=== PATIENT | male | born 1965 | race Caucasian/White ===

== ENCOUNTER 2017-11-27 14:25 | Emergency (ER) | payer OTHER ==
[~2017-11-27] VITALS: Ht 172.7 cm; Wt 99.8 kg
--- NOTE | 2017-11-27 15:10 | RADIOLOGY REPORT ---
EXAMINATION: XR CHEST CLINICAL INFORMATION: Fever, malaise, hypoxia, lethargy. COMPARISON: None TECHNIQUE: 2 views of the chest were obtained. FINDINGS: The lungs are clear. No pleural effusion. Cardiomediastinal silhouette and pulmonary vasculature are within normal limits. No acute osseous finding. IMPRESSION: No acute cardiopulmonary disease.
[2017-11-27 15:12] LABS: ABSOLUTE BASOPHIL COUNT 0.1 /CUMM (0.0-0.2); ABSOLUTE EOSINOPHIL COUNT 0.1 /CUMM (0.0-0.7); ABSOLUTE LYMPH COUNT 2.6 /CUMM (1.2-3.4); ABSOLUTE MONOCYTE COUNT 0.9 /CUMM (0.10-0.60); BASOPHIL % 0.6 % (0.0-2.0); EOSINOPHIL % 1.5 % (0-5); HEMATOCRIT 43.8 % (42-52); MEAN CORPUSCULAR HGB 29.7 PG (27.0-31.0); MEAN CORPUSCULAR HGB CONC 33.6 G/DL (33.0-37.0); MEAN CORPUSCULAR VOLUME 88.5 FL (80.0-94.0); MEAN PLATELET VOLUME 7.3 FL (7.4-10.4); PLATELET COUNT 268 /CUMM (130-400); RBC DISTRIBUTION WIDTH 12.9 % (11.5-14.5); RED BLOOD CELL CT 4.95 /CUMM (4.70-6.10); WHITE BLOOD CELL COUNT 8.7 /CUMM (4.8-10.8)
--- NOTE | 2017-11-27 15:22 | ED GENERAL ADULT ---
History of Present Illness General Chief Complaint: General Adult Stated Complaint: FATIQUE,SOB,WEAKNESS,LIGHT HEADED,SORE THROAT Source: patient Exam Limitations: no limitations Vital Signs & Intake/Output Vital Signs & Intake/Output Vital Signs Date Time Temp Pulse Resp B/P B/P Pulse O2 O2 Flow FiO2 Mean Ox Delivery Rate 11/27 1944 98.7 94 16 120/65 95 Room Air 11/27 1717 84 16 100 Room Air 11/27 1703 97.7 62 18 121/67 93 / 1500 Room Air 11/27 1434 96.9 83 20 88/60 94 Room Air Allergies Coded Allergies: Penicillins (UPSET STOMACH 11/27/17) Reconcile Medications Doxycycline Hyclate 100 MG TABLET 1 TAB PO BID lyme Ondansetron (Zofran Odt) 4 MG TAB.RAPDIS 1 TAB SL TID PRN nausea Triage Note: PT C/O SOB, FATIGUE, SORE THROAT, NAUSEA X 9 DAYS. SAW PMD ON TUESDAY, STREP AND LYME WERE NEG. ON TUESDAY HIS SYMPTOMS GOT WORSE Triage Nurses Notes Reviewed? yes Onset: Gradual Duration: day(s): Timing: recent history Severity: moderate HPI: 52-year-old male presents to emergency department complaining of intermittent fatigue, dyspnea, sore throat for the past 9 days. Patient's eyes primary care doctor on 11/21. At that time he had negative flu and strep test. A Lyme titer was sent and patient was informed that Lyme test was negative as well. Patient reports episodes of intermittent nausea and 3 episodes of vomiting on 11/23, he has had no further vomiting since then. Patient reports intermittent fevers and chills, myalgias. The patient denies chest pain, cough, sputum production, abdominal pain, diarrhea, rash, sick contact, urinary symptoms. Past History Travel History Traveled to [place] past 21 day No Medical History Any Pertinent Medical History? see below for history Cardiovascular: hyperlipidemia Surgical History Surgical History: non-contributory Psychosocial History What is your primary language Estonian Tobacco Use: Never used ETOH Use: occasional use Illicit Drug Use: denies illicit drug use Family History Hx Contributory? No Review of Systems Review of Systems Constitutional: Reports: see HPI. EENTM: Reports: see HPI. Respiratory: Reports: see HPI. Cardiovascular: Reports: no symptoms. GI: Reports: see HPI. Genitourinary: Reports: no symptoms. Musculoskeletal: Reports: see HPI. Skin: Reports: no symptoms. Neurological/Psychological: Reports: no symptoms. Hematologic/Endocrine: Reports: no symptoms. Immunologic/Allergic: Reports: no symptoms. All Other Systems: Reviewed and Negative Physical Exam Physical Exam General Appearance: well developed/nourished, no apparent distress, alert, awake Head: atraumatic, normal appearance Eyes: Bilateral: normal appearance. Ears, Nose, Throat: normal pharynx, hearing grossly normal Neck: normal inspection, supple, full range of motion, no lymphadenopathy Respiratory: normal breath sounds, no respiratory distress, lungs clear Cardiovascular: regular rate/rhythm Gastrointestinal: normal bowel sounds, soft, non-tender, no organomegaly Back: normal inspection, normal range of motion Extremities: normal inspection, normal range of motion Neurologic/Psych: awake, alert, oriented x 3 Skin: intact, normal color, warm/dry Core Measures ACS in differential dx? No CVA/TIA Diagnosis: No Sepsis Present: No Sepsis Focused Exam Completed? No Progress Differential Diagnoses I considered the following diagnoses in my evaluation of the patient: [Lyme disease, sepsis, pneumonia, pulmonary embolism, strep pharyngitis, endocarditis] Plan of Care: Orders Procedure Date/time Status BLOOD CULTURE 11/27 1802 Active Add-on Test (ER Only) 11/27 1556 Active EKG 11/27 1556 Active MONOSPOT TEST 11/27 1454 Complete URINALYSIS 11/27 1452 Complete THROAT CULTURE W/QUICK STREP 11/27 1444 Active LACTIC ACID 11/27 1444 Complete COMPREHENSIVE METABOLIC PANEL 11/27 1444 Complete CBC WITHOUT DIFFERENTIAL 11/27 1444 Complete Laboratory Tests 11/27/17 1928: Lyme Ab (Western Blot) Pending, Lyme IgG 18 kDa Band Pending, Lyme IgG 23 kDa Band Pending, Lyme IgG 28 kDa Band Pending, Lyme IgG 30 kDa Band Pending, Lyme IgG 39 kDa Band Pending, Lyme IgG 41 kDa Band Pending, Lyme IgG 45 kDa Band Pending, Lyme IgG 58 kDa Band Pending, Lyme IgG 66 kDa Band Pending, Lyme IgG 93 kDa Band Pending, Lyme IgM (Western Blot) Pending, Lyme IgM 23 kDa Band Pending, Lyme IgM 39 kDa Band Pending, Lyme IgM 41 kDa Band Pending 11/27/17 1744: Lactic Acid Cancelled 11/27/17 1724: Urine Color YEL, Urine Clarity CLEAR, Urine pH 6.0, Ur Specific Warren <= 1.005 , Urine Protein NEG, Urine Ketones NEG, Urine Nitrite NEG, Urine Bilirubin NEG, Urine Urobilinogen 0.2, Ur Leukocyte Esterase NEG, Ur Microscopic EXAM NOT REQUIRED, Urine Hemoglobin NEG, Urine Glucose NEG 11/27/17 1454: Infectious Red [place] Titer NEGATIVE 11/27/17 1452: Anion Gap 15, Estimated GFR > 60, BUN/Creatinine Ratio 12.7, Glucose 86, Lactic Acid 1.7, Calcium 9.3, Total Bilirubin 0.6, AST 36, ALT 43, Alkaline Phosphatase 84, Total Protein 7.8, Albumin 4.2, Globulin 3.6, Albumin/Globulin Ratio 1.2, CBC w Diff NO MAN DIFF REQ, RBC 4.95, MCV 88.5, MCH 29.7, MCHC 33.6, RDW 12.9, MPV 7.3 L, Gran % 57.0, Lymphocytes % 30.2, Monocytes % 10.7 H, Eosinophils % 1.5, Basophils % 0.6, Absolute Granulocytes 5.0, Absolute Lymphocytes 2.6, Absolute Monocytes 0.9 H, Absolute Eosinophils 0.1, Absolute Basophils 0.1 Microbiology 11/28 1827 BLOOD: Blood Culture - RECD 11/27 1801 BLOOD: Blood Culture - CAN Cancelled: Quantity not sufficient for both blood culture bottles. Chest x-ray shows no evidence of pneumonia. Labs are stable, no leukocytosis. These findings discussed with Dr. Han. We'll obtain chest CTA to further rule out pneumonia or pulmonary embolism. UA shows no evidence of UTI. Monospot test is negative. Chest CTA rules out pulmonary embolism, no pneumonia. The patient was seen and evaluated by Dr. Han. Symptoms may be consistent with Lyme disease. Will obtain western blot study. We'll initiate doxycycline at this time. Patient was given a referral to Dr. keller given his nonspecific infectious symptoms without definite findings in the emergency Department. Patient also to follow-up with his primary care doctor. Blood cultures were sent to the lab. The patient agrees with plan of care, vital signs are stable at time of discharge. Diagnostic Imaging: Viewed by Me: Radiology Read, CT Scan. Discussed w/RAD: Radiology Read, CT Scan. Radiology Impression: PATIENT: STORM ERICKSON PRESENT AGE: 52 PATIENT ACCOUNT NO: [id number] : 65 LOCATION: ER ORDERING PHYSICIAN: Cordelia FERNANDEZ SERVICE DATE: 11/27/17155 EXAM TYPE: CAT - CTA CHEST-PULMONARY EMBOLISM EXAMINATION: CT ANGIOGRAM OF THE CHEST WITH AND WITHOUT CONTRAST (CT PULMONARY ANGIOGRAM FOR PE) CLINICAL INFORMATION: Fever, dyspnea. COMPARISON: Chest radiography earlier today. TECHNIQUE: Prior to contrast administration, noncontrast localization images were obtained. Subsequently, multidetector volumetric imaging was performed from the thoracic inlet to below the diaphragms following the administration of 75 mL Optiray 320 intravenous contrast. No contrast reaction reported. Sagittal, coronal, and MIP oblique sagittal reformatted images were obtained on the CT workstation, uploaded to PACS, and reviewed. Total exam dose-length product 537 mGy-cm. FINDINGS: QUALITY OF STUDY/CONTRAST BOLUS: Satisfactory. PULMONARY ARTERIES: No central or segmental pulmonary emboli. THORACIC AORTA: No aneurysm or dissection. LUNG: No consolidation to suggest pneumonia. No suspicious pulmonary nodules. Mild dependent parenchymal changes. PLEURA: No pleural effusion or pneumothorax. MEDIASTINUM: Normal heart size. Scattered coronary artery calcification. No pericardial effusion. No hilar or mediastinal lymphadenopathy. Small hiatal hernia. CHEST WALL/AXILLA: No axillary or internal mammary lymphadenopathy. OSSEOUS STRUCTURES: No acute or suspicious osseous abnormality. UPPER ABDOMEN: No acute intra-abdominal abnormalities. IMPRESSION: 1. No pulmonary embolism. 2. No evidence of pneumonia or acute pulmonary pathology. 3. Scattered coronary artery calcification. VTE: Negative. DICTATED BY: Carlos Oh MD DATE/TIME DICTATED:11/27/171619 FOURCHETTE SEWER:JEN DATE/TIME TRANSCRIBED:11/27/171619 CONFIDENTIAL, DO NOT COPY WITHOUT APPROPRIATE AUTHORIZATION. <Electronically signed in Other Vendor System> SIGNED BY: Carlos Oh MD 11/27/17 4208 CXR Impression: PATIENT: STORM ERICKSON PRESENT AGE: 52 PATIENT ACCOUNT NO: [id number] : 65 LOCATION: [facility] ORDERING PHYSICIAN: Cordelia FERNANDEZ SERVICE DATE: 11/27/17-6883 EXAM TYPE: RAD - XRY-CHEST XRAY, TWO VIEWS EXAMINATION: XR CHEST CLINICAL INFORMATION: Fever, malaise, hypoxia, lethargy. COMPARISON: None TECHNIQUE: 2 views of the chest were obtained. FINDINGS: The lungs are clear. No pleural effusion. Cardiomediastinal silhouette and pulmonary vasculature are within normal limits. No acute osseous finding. IMPRESSION: No acute cardiopulmonary disease. DICTATED BY: Abiel Patterson MD DATE/TIME DICTATED:11/27/171505 FOURCHETTE SEWER: JEN DATE/TIME TRANSCRIBED:11/27/171505 CONFIDENTIAL, DO NOT COPY WITHOUT APPROPRIATE AUTHORIZATION. <Electronically signed in Other Vendor System> SIGNED BY: Abiel Patterson MD 11/27/17 1510 Initial ED EKG: sinus rhythm @63bpm, nonspecific ST changes Departure Departure Disposition: HOME OR SELF CARE Condition: Stable Clinical Impression Primary Impression: Dyspnea Qualifiers: Dyspnea type: dyspnea on exertion Qualified Code: R06.09 - Other forms of dyspnea Secondary Impressions: Fatigue Qualifiers: Fatigue type: unspecified Qualified Code: R53.83 - Other fatigue Nausea & vomiting Qualifiers: Vomiting type: unspecified Vomiting Intractability: non-intractable Qualified Code: R11.2 - Nausea with vomiting, unspecified Sore throat Referrals: Jerrica HUANG,Jhony Maher (PCP/Family) Dante HUANG,Harris Cai Additional Instructions: Take zofran as prescribed for nausea. Begin doxycycline. Follow-up with your primary care doctor, call the office Tuesday to make an appointment for this week. You were also given a referral to a infectious disease specialist. Return if you have worsening symptoms or other concerns. Please note that there might be incidental findings in your evaluation that are unrelated to the current emergency department visit. Please notify your primary care doctor about this emergency department visit in order to obtain and review all of the testing performed so that these incidental findings can be monitored as needed. If you had an x-ray performed, please understand that some fractures may not be seen on the initial set of x-rays. If your symptoms persist you might need a repeat set of x-rays to check for such a fracture. If you had a laceration evaluated, please understand that foreign bodies such as glass or wood may not be visible to the naked eye or on plain x-rays. If the wound becomes red, swollen, increasingly more painful or if there is any drainage from the wound, please have it reevaluated by a physician for the possibility of a retained foreign body. If you're unable to follow up as outlined in the discharge instructions please return to the emergency department. Thank you for choosing the [facility] Emergency Department for your care. It was a pleasure to serve you today. Departure Forms: Customer Survey General Discharge Information Prescriptions: Current Visit Scripts Ondansetron (Zofran Odt) 1 TAB SL TID PRN nausea #10 TAB Doxycycline Hyclate 1 TAB PO BID #28 TAB Critical Care Note Critical Care Note Critical Care Time: non-applicable
--- NOTE | 2017-11-27 16:55 | CT SCAN REPORT ---
EXAMINATION: CT ANGIOGRAM OF THE CHEST WITH AND WITHOUT CONTRAST (CT PULMONARY ANGIOGRAM FOR PE) CLINICAL INFORMATION: Fever, dyspnea. COMPARISON: Chest radiography earlier today. TECHNIQUE: Prior to contrast administration, noncontrast localization images were obtained. Subsequently, multidetector volumetric imaging was performed from the thoracic inlet to below the diaphragms following the administration of 75 mL Optiray 320 intravenous contrast. No contrast reaction reported. Sagittal, coronal, and MIP oblique sagittal reformatted images were obtained on the CT workstation, uploaded to PACS, and reviewed. Total exam dose-length product 537 mGy-cm. FINDINGS: QUALITY OF STUDY/CONTRAST BOLUS: Satisfactory. PULMONARY ARTERIES: No central or segmental pulmonary emboli. THORACIC AORTA: No aneurysm or dissection. LUNG: No consolidation to suggest pneumonia. No suspicious pulmonary nodules. Mild dependent parenchymal changes. PLEURA: No pleural effusion or pneumothorax. MEDIASTINUM: Normal heart size. Scattered coronary artery calcification. No pericardial effusion. No hilar or mediastinal lymphadenopathy. Small hiatal hernia. CHEST WALL/AXILLA: No axillary or internal mammary lymphadenopathy. OSSEOUS STRUCTURES: No acute or suspicious osseous abnormality. UPPER ABDOMEN: No acute intra-abdominal abnormalities. IMPRESSION: 1. No pulmonary embolism. 2. No evidence of pneumonia or acute pulmonary pathology. 3. Scattered coronary artery calcification. VTE: Negative.
[2017-11-27] MEDS ORDERED: DOXYCYCLINE HY100 M4 PO (18:01)
[2017-11-27] MEDS ORDERED: ZOFRAN ODT4 M1 SL (18:01)
[2017-11-27 19:44] VITALS: BP 120/65
== END 2017-11-27 19:45 ==
LOC: ERH 14:25
PROVIDERS: Physician Assistant
DX: R06.00 Dyspnea, unspecified (principal); R53.83 Other fatigue; R11.2 Nausea with vomiting, unspecified; J02.9 Acute pharyngitis, unspecified
CPT/HCPCS: 71046; 81003; 87040; 93005; 93010; 96361; 96374; J2405

== ENCOUNTER 2017-12-01 14:08 | Inpatient (IN) | payer OTHER ==
[~2017-12-01] VITALS: Ht 172.7 cm; Wt 99.8 kg
[~2017-12-01 14:08] MED LIST: DOXYCYCLINE HY100 M4 PO; ZOFRAN ODT4 M1 SL
[2017-12-01 14:55] LABS: ABSOLUTE BASOPHIL COUNT 0.1 /CUMM (0.0-0.2); ABSOLUTE EOSINOPHIL COUNT 0.1 /CUMM (0.0-0.7); ABSOLUTE GRANULOCYTE CT 5.9 /CUMM (1.4-6.5); ABSOLUTE LYMPH COUNT 2.6 /CUMM (1.2-3.4); ABSOLUTE MONOCYTE COUNT 0.9 /CUMM (0.10-0.60); BASOPHIL % 0.6 % (0.0-2.0); EOSINOPHIL % 1.3 % (0-5); GRANULOCYTE % 61.7 % (42.2-75.2); HEMATOCRIT 41.2 % (42-52); MEAN CORPUSCULAR HGB 30.1 PG (27.0-31.0); MEAN CORPUSCULAR HGB CONC 34.2 G/DL (33.0-37.0); MEAN CORPUSCULAR VOLUME 88.1 FL (80.0-94.0); MEAN PLATELET VOLUME 8.1 FL (7.4-10.4); RBC DISTRIBUTION WIDTH 13.3 % (11.5-14.5); RED BLOOD CELL CT 4.68 /CUMM (4.70-6.10)
--- NOTE | 2017-12-01 15:07 | ED GENERAL ADULT ---
History of Present Illness General Chief Complaint: General Adult Stated Complaint: LOW BLOOD PRESSURE, SEE HERE FOR SAME ON 11/27 Source: patient Exam Limitations: no limitations Vital Signs & Intake/Output Vital Signs & Intake/Output Vital Signs Date Time Temp Pulse Resp B/P B/P Pulse O2 O2 Flow FiO2 Mean Ox Delivery Rate 12/01 1804 125/67 12/01 1423 97.8 79 15 98/63 97 Room Air Room Air Allergies Coded Allergies: Penicillins (UPSET STOMACH 12/01/17) Reconcile Medications Doxycycline Hyclate 100 MG TABLET 1 TAB PO BID lyme Ondansetron (Zofran Odt) 4 MG TAB.RAPDIS 1 TAB SL TID PRN nausea Triage Note: PT SENT TO ED BY DR. MERCADO FOR LOW BLOOD PRESSURES OVER THE LAST WEEK. PT 98 SYSTOLIC IN TRIAGE. SENT BY DR. MERCADO FOR ADMISSION. PT HAS HX OF LYME DISEASE AND CHOLESTEROL. Triage Nurses Notes Reviewed? yes Onset: Gradual Duration: week(s): Timing: constant HPI: 52-year-old male with a history of Lyme disease and hyperlipidemia presenting with subjective fevers, generalized malaise and fatigue, nausea 2 weeks. Patient had 2 episodes of emesis in the last 2 weeks. Also endorses decreased appetite. Has been seen by his PMD Dr. Becerril with extensive outpatient workup including labs, CT chest, CT abdomen and pelvis, and has been unable to identify an etiology for his symptoms. Had Lyme testing that was equivocal, but was empirically started on antibiotic treatment. Has been taking his antibiotics without improvement. Sent in by Dr. Becerril for progressively worsening hypotension. Had 3 separate office visits during which his BP was 100 systolic with the first, 90s systolic with a second, and then 70s systolic with today's visit. Patient endorses intermittent lightheadedness, but no syncopal episodes. On arrival to the ED he is in the 90s systolic. Denies rashes, URI symptoms, cough, chest pain, shortness of breath, abdominal pain, diarrhea, dysuria. (Shameka Roca) Past History Travel History Traveled to [place] past 21 day No Medical History Any Pertinent Medical History? see below for history Neurological: LYME DISEASE Cardiovascular: hyperlipidemia Surgical History Surgical History: non-contributory Psychosocial History What is your primary language Iraqi Tobacco Use: Quit >30 days ago ETOH Use: occasional use Illicit Drug Use: denies illicit drug use Family History Hx Contributory? No (Shameka Roca) Review of Systems Review of Systems Constitutional: Reports: see HPI. EENTM: Reports: no symptoms. Respiratory: Reports: no symptoms. Cardiovascular: Reports: no symptoms. GI: Reports: see HPI. Genitourinary: Reports: no symptoms. Musculoskeletal: Reports: no symptoms. Skin: Reports: no symptoms. Neurological/Psychological: Reports: see HPI. Hematologic/Endocrine: Reports: no symptoms. Immunologic/Allergic: Reports: no symptoms. (Shameka Roca) Physical Exam Physical Exam General Appearance: well developed/nourished, no apparent distress, alert, awake , comfortable Head: atraumatic, normal appearance Eyes: Bilateral: normal appearance, PERRL, EOMI. Ears, Nose, Throat: normal ENT inspection Neck: normal inspection, supple Respiratory: normal breath sounds, lungs clear Cardiovascular: regular rate/rhythm Gastrointestinal: soft, non-tender Back: normal inspection Extremities: normal inspection Neurologic/Psych: no motor/sensory deficits, awake, alert, oriented x 3, normal gait, normal mood/affect, kiln loader II-XII nml as tested, cerebellar function intact Skin: intact, normal color, warm/dry, rashes Core Measures ACS in differential dx? No CVA/TIA Diagnosis: No Sepsis Present: No Sepsis Focused Exam Completed? No (Shameka Roca) Progress Differential Diagnoses I considered the following diagnoses in my evaluation of the patient: [Viral syndrome versus Lyme versus thyroid imbalance versus metabolic derangement versus adrenal insufficiency] Plan of Care: Orders Procedure Date/time Status Heart Healthy Diet 12/02 B Active ED Holding Orders 12/01 1847 Active Admit to inpatient 12/01 1847 Active Vital Signs 12/01 1847 Active Code Status 12/01 1847 Active Patient Data 12/01 1845 Active TSH REFLEX 12/01 1755 Active TROPONIN LEVEL 12/01 1755 Active FREE T4 12/01 1755 Active Add-on Test (ER Only) 12/01 1715 Active MISTAKE 12/01 1621 Active URINALYSIS 12/01 1543 Complete Add-on Test (ER Only) 12/01 1531 Active PHOSPHORUS 12/01 1440 Complete MAGNESIUM 12/01 1440 Complete LIPASE 12/01 1440 Complete Add-on Test (ER Only) 12/01 1435 Active CORTISOL PM 12/01 1426 Complete COMPREHENSIVE METABOLIC PANEL 12/01 1426 Complete CBC WITHOUT DIFFERENTIAL 12/01 142 Complete EKG 12/01 142 Active Laboratory Tests 12/01/17 1816: Urine Color STRAW, Urine Clarity CLEAR, Urine pH 6.0, Ur Specific Baker <= 1.005, Urine Protein NEG, Urine Ketones NEG, Urine Nitrite NEG, Urine Bilirubin NEG, Urine Urobilinogen 0.2, Ur Leukocyte Esterase NEG, Ur Microscopic EXAM NOT REQUIRED, Urine Hemoglobin NEG, Urine Glucose NEG 12/01/17 1440: Anion Gap 12, Estimated GFR 58 L, BUN/Creatinine Ratio 11.5, Glucose 91, Calcium 9.5, Phosphorus 4.4, Magnesium 2.1, Total Bilirubin 0.6, AST 29, ALT 36, Alkaline Phosphatase 78, Total Protein 7.6, Albumin 4.1, Globulin 3.5, Albumin/ Globulin Ratio 1.2, Lipase 122, Cortisol PM Sample 11.2, CBC w Diff NO MAN DIFF REQ, RBC 4.68 L, MCV 88.1, MCH 30.1, MCHC 34.2, RDW 13.3, MPV 8.1, Gran % 61.7, Lymphocytes % 27.1, Monocytes % 9.3, Eosinophils % 1.3, Basophils % 0.6, Absolute Granulocytes 5.9, Absolute Lymphocytes 2.6, Absolute Monocytes 0.9 H, Absolute Eosinophils 0.1, Absolute Basophils 0.1 Orthostatics showed drop in systolic BP from 120s to low 80s when going from laying to standing. Patient was profoundly symptomatic with standing. Will initiate IV fluids and admit for further evaluation of his orthostasis of unclear etiology. Discussed with the ED attending, hospitalist, and MOD. Initial ED EKG: NSR, no ST T wave changes, inferior q waves (Shameka Roca) Departure Departure Disposition: STILL A PATIENT Condition: Stable Clinical Impression Primary Impression: Orthostatic hypotension Referrals: Jerrica HUANG,Jhony Maher (PCP/Family) Departure Forms: Customer Survey General Discharge Information Admission Note Spoke With: Clive Jones MD Documentation of Exam: Documentation of any treatments & extenuating circumstances including Concerns Regarding Discharge (functional status, medication knowledge or non-compliance, living conditions, etc.) that warrant an admission rather than observation: [IV fluids, hemodynamic monitoring, further w/u for unclear etiology of orthostatic hypotension, am cortisol level] (Shameka Roca) PA/SECURITY SUPERVISOR Co-Sign Statement Statement: ED Attending supervision documentation- [X] I saw and evaluated the patient. I have also reviewed all the pertinent lab results and diagnostic results. I agree with the findings and the plan of care as documented in the PA's/SECURITY SUPERVISOR's documentation. [X] I have reviewed the ED Record and agree with the PA's/SECURITY SUPERVISOR's documentation. [] Additions or exceptions (if any) to the PAs/SECURITY SUPERVISOR's note and plan are summarized below: [Patient to be admitted for symptomatic orthostatic hypotension. Patient's symptoms are worsening. Patient was hypotensive in his primary care physician's office. Patient to be admitted for IV fluids cardiology consultation.] (Pelon HUANG,Raimundo Cleaning) Critical Care Note Critical Care Note Critical Care Time: non-applicable (Shameka Roca)
[2017-12-01 15:12] LABS: WHITE BLOOD CELL COUNT 9.6 /CUMM (4.8-10.8)
[2017-12-01 15:14] LABS: PLATELET COUNT 246 /CUMM (130-400)
--- NOTE | 2017-12-01 20:22 | History & Physical ---
Silva Ashley MD 12/01/172020: General Information and HPI MD Statement: I have seen and personally examined STORM ERICKSON and documented this H&P. The patient is a 52 year old M who presented with a patient stated chief complaint of nausea, vomiting, dizziness, recent URI for 2 weeks Source of Information: patient Exam Limitations: no limitations History of Present Illness: This is a 52-year-old male with a past medical history significant for hyperlipidemia, Raynaud's disease, strong family history of colon cancer that comes to see us for complaint of fatigue, malaise, nausea/vomiting, orthostatic hypotension with recent upper respiratory illness for 2 weeks. The patient states that about 2 weeks ago he developed a fever of 103 and extreme fatigue. He also admits to a sore throat around the same time, cough, myalgias and notes that he thought he had strep throat so visited his primary care doctor, Dr. Becerril. At that time he had a rapid strep test and also a flu test which were both negative. At that time he was found to have systolic blood pressures in the 100s. The patient treated this sickness with rest and hydration but his symptoms other than the sore throat and cough did not get better. 6 days after his first visit to his PCP, he visited urgent care and was ultimately sent to the [facility] for workup. His systolic blood pressure at that time was found to be in the 90s. He had a test for Lyme disease which was positive on 2 bands so was started on doxycycline, has received 8 doses total to date. The patient had other workup including CT abdomen and pelvis, CT chest, chest x-ray child did not show any cause of his continued symptoms. The patient continued to feel sick over this week. He had an echocardiogram planned for today but when he went to his PCPs office, he was found to have a systolic blood pressure in the 80s and was ultimately sent to [facility]. The patient also noted that he has had decreased appetite recently with low food and fluid intake. He has continued to be lightheaded especially on standing or any movement but denies any vertigo. He denies any loss of consciousness. The patient has taken Zofran throughout the week and notes that it did help with his nausea and vomiting. The patient denies any history of rash, chest pain, shortness of breath, urinary symptoms, diarrhea but admits to some recent constipation with abdominal discomfort. Of note the patient does have a strong family history of colon cancer with most relatives on his father's side having had colon cancer. The patient states that he cannot confirm or deny any blood in the stools as he is color blind. He last had a colonoscopy 3-4 years ago and notes that no polyps were found at the time. The patient denies any headache, tinnitus, visual changes. He denies any focal neuro deficit. Of note, the patient has a history of Raynaud's phenomenon and notes that usually it isn't sided by cold, but recently flareups have been occurring more frequently. The patient denies any recent sick contacts but does admit to a recent trip to [place] with a long road trip helping his father drive [place]. Allergies/Medications Allergies: Coded Allergies: Penicillins (UPSET STOMACH 12/01/17) Home Med list Doxycycline Hyclate 100 MG TABLET 1 TAB PO BID lyme Ondansetron (Zofran Odt) 4 MG TAB.RAPDIS 1 TAB SL TID PRN nausea Past History Travel History Traveled to [place] past 21 day No Medical History Neurological: LYME DISEASE Cardiovascular: hyperlipidemia, Raynaud's Surgical History Surgical History: non-contributory Past Family/Social History Family History Relations & Conditions if any FATHER FH: colon cancer MOTHER Psychosocial History ETOH Use: occasional use Illicit Drug Use: denies illicit drug use Review of Systems Review of Systems Constitutional: Reports: fever, malaise, weakness. EENTM: Reports: no symptoms. Cardiovascular: Reports: no symptoms. Respiratory: Reports: cough. GI: Reports: abdominal pain, constipation, nausea, vomiting. Genitourinary: Reports: no symptoms. Musculoskeletal: Reports: no symptoms. Skin: Reports: no symptoms. Neurological/Psychological: Reports: no symptoms. Hematologic/Endocrine: Reports: no symptoms. Immunologic/Allergic: Reports: no symptoms. Exam & Diagnostic Data Last 24 Hrs of Vital Signs/I&O Vital Signs Date Time Temp Pulse Resp B/P B/P Pulse O2 O2 Flow FiO2 Mean Ox Delivery Rate 12/02 2207 98.7 68 20 114/64 98 Room Air 12/02 2007 98.3 77 16 104/64 98 Room Air 12/01 1900 Room Air Room Air 12/01 1804 125/67 12/01 1423 97.8 79 15 98/63 97 Room Air Room Air Intake & Output 12/02 0800 12/02 0000 12/01 1600 Intake Total 1100 Output Total Balance 1100 Intake, IV 1000 Intake, Oral 100 Patient 220 lb 220 lb Weight Weight Reported by Patient Reported by Patient Measurement Method Physical Exam General Appearance Alert, Oriented X3, Cooperative, No Acute Distress Skin No Rashes, No Breakdown, No Significant Lesion Skin Temp/Moisture Exam: Warm/Dry Sepsis Skin Exam (color): Normal for Ethnicity HEENT Atraumatic, EOMI, Mucous Membr. moist/pink Neck Supple, No JVD Cardiovascular Regular Rate, Normal S1, Normal S2, No Murmurs Lungs Clear to Auscultation, Normal Air Movement Abdomen Normal Bowel Sounds, Soft, No Tenderness Neurological Normal Gait, Normal Speech, Strength at 5/5 X4 Ext, Normal Tone, Sensation Intact, Cranial Nerves 3-12 NL, Reflexes 2+ Extremities No Clubbing, No Cyanosis, No Edema, Normal Pulses Vascular Normal Pulses, Pulses Symmetrical Last 24 Hrs of Labs/Paddy: Laboratory Tests 12/01/17 1929: Troponin I < 0.01, Free T4 1.32, Total T3 1.24, TSH &T3 &Free T4 Intrp 1.190 12/01/171815: Urine Color STRAW, Urine Clarity CLEAR, Urine pH 6.0, Ur Specific Delmar <= 1.005, Urine Protein NEG, Urine Ketones NEG, Urine Nitrite NEG, Urine Bilirubin NEG, Urine Urobilinogen 0.2, Ur Leukocyte Esterase NEG, Ur Microscopic EXAM NOT REQUIRED, Urine Hemoglobin NEG, Urine Glucose NEG 12/01/17 181: Ur Random Creatinine 91.3, Ur Random Sodium 14 L, Ur Random Potassium 14.5, Fraction Sodium Excret 0.1 12/01/17 1440: Anion Gap 12, Estimated GFR 58 L, BUN/Creatinine Ratio 11.5, Glucose 91, Calcium 9.5, Phosphorus 4.4, Magnesium 2.1, Total Bilirubin 0.6, AST 29, ALT 36, Alkaline Phosphatase 78, Total Protein 7.6, Albumin 4.1, Globulin 3.5, Albumin/ Globulin Ratio 1.2, Lipase 122, Cortisol PM Sample 11.2, CBC w Diff NO MAN DIFF REQ, RBC 4.68 L, MCV 88.1, MCH 30.1, MCHC 34.2, RDW 13.3, MPV 8.1, Gran % 61.7, Lymphocytes % 27.1, Monocytes % 9.3, Eosinophils % 1.3, Basophils % 0.6, Absolute Granulocytes 5.9, Absolute Lymphocytes 2.6, Absolute Monocytes 0.9 H, Absolute Eosinophils 0.1, Absolute Basophils 0.1 Assessment/Plan Assessment: This is a 52-year-old male with a past medical history significant for hyperlipidemia, Raynaud's disease, strong family history of colon cancer that comes to see us for complaint of fatigue, malaise, nausea/vomiting, orthostatic hypotension with recent upper respiratory illness for 2 weeks. The patient was found to have hypotension by his PCP. Extensive workup did not point to a cause for the patient's symptoms. The patient is currently being treated for Lyme disease although he only had 2 positive Lyme immunoglobulins. The patient has a positive family history of colon cancer and on CT abdomen was found to have a questionable lesion, thickening of the splenic flexure. In the ED, the patient was found to have positive orthostatics. His vital signs otherwise were stable. WBC was found to be 9.6, sodium 137, potassium 4.4 , thyroid tests normal, p.m. cortisol was also found to be normal. Creatinine was found to be elevated to 1.3 from his baseline of 1.0 in June but she doesn't 13 and 1.1 in June 2017. A chest x-ray was clear. Chest CT showed no pulmonary embolism, no pneumonia and scattered coronary calcifications. CT abdomen and pelvis was described above. EKG showed a rate of 57 with evidence for LVH and normal QTC. Patient will be admitted to the Gen. medical floors for evaluation and treatment of the following: #Orthostatic hypotension likely secondary to adrenal insufficiency. This could have been exacerbated by recent stress i.e. viral upper respiratory illness. The patient's p.m. cortisol while unreliable, indicates that he is potentially not having a robust enough stress response. The patient has no indication at the moment for SIRS or sepsis. Hypotension could also be caused by heart rate/ rhythm issues but this patient was found to have no issues with either. The patient does have evidence of mild dehydration with a creatinine of 1.3. #Evidence of potential lesion on CT abdomen and pelvis in the setting of family history of colon cancer Plan -Follow up with a.m. cortisol level -If abnormal follow-up with endocrinology consult -Urine tox screen -CRP/ESR for potential vasculitis, patient already does have Raynaud's phenomenon -Continue patient's doxycycline to complete a 14 day course for his potential although unlikely Lyme disease. -Continue IV hydration with 1 more liter. -Guaiac stools for concern of colonic mass in setting of family history of colon cancer. Patient is full code Regular diet DVT prophylaxis with Alps and chemical prophylaxis As Ranked By This Provider Problem List: 1. Orthostatic hypotension 2. Fatigue 3. Nausea & vomiting 4. Dyspnea 5. Sore throat Core Measures/Misc (03/06) Acute Coronary Syndrome ACS Diagnosis: No Congestive Heart Failure Congestive Heart Failure Diagnosis No Cerebrovascular Accident CVA/TIA Diagnosis: No VTE (View Protocol) VTE Risk Factors Acute Medical Illness No Mechanical VTE Prophylaxis d/t N/A MechProphylax Ordered No VTE Pharm Prophylaxis d/t NA PharmProphylax ordered Sepsis (View protocol) Sepsis Present: No If YES complete Sepsis Event Note If YES complete Sepsis Event Note Anabella HUANG,Ismail 12/02/17 0400: Core Measures/Misc (03/06) Sepsis (View protocol) If YES complete Sepsis Event Note If YES complete Sepsis Event Note Resident Review Statement Resident Statement: examined this patient, discussed with manager of international, agreed with manager of international Other Findings: 52/M with PMHx significant for HLD, Raynaud's phenomena, & strong family hx of colon cancer, who presented for dizziness, nausea, vomiting, and hypotension. The patient had cough, fever and muscle aches from 2 weeks ago, his cough improved however he continued to complain of intermittent dizziness and hypotension. His been seen by health PCP with extensive outpatient workup includes Taylor CTs and multiple low workup, however wasn't able to identify that showed view of his symptoms. The patient was started on doxycycline for inconclusive Lyme test results, he initially felt better however earlier today his symptoms are worse for which she decided to visit the ED. He reports poor oral intake secondary to persistent nausea and dizziness when sitting or standing. His symptom completely resolved upon laying flat. He denies any other current active complaints. Vitals: Temp 97.8, HR 79, BP 98/63 (improved to 125/67 after IV fluid), O2 97. Labs: Cr 1.3, GFR 58. H&H, LVT, TFT, Na, Ronnie, Mg, Ca, are all WNL. Imaging: CXR at revealed no acute process. CTA on revealed no PE, no active pathology. Abominal CT on Dec 01 showed 2 cm segmental region of apparent mucosal wall thickening of the splenic flexure, possibly colonic contraction however mass cannot be excluded and follow-up is recommended. Assessment: Patient has significant positive orthostatic hypotension. He has extensive workup as an outpatient that did not reveal etiology. She responded well to IV fluids. He has RACHNA and hypotension on admission, this possibly secondary to poor oral intake because of persistent nausea. Random cortisol was found inappropriately normal at 11.2 (normal 1.7-14), cortisol should be elevated we' ll start hypotension, however the random cortisol is not sensitive enough, we will order a morning cortisol level and if low or normal we will ask for endocrinology consult. Even with hypotension, RACHNA, and dehydration his potassium is normal at 4.4 which may indicate dysfunction of tbghxuyck-urzrirvqawc-vsudojiqwhx pathway which supposed to compensate. Other possible explanation would be pure Autonomic Failure such as scott-jake syndrome which present as orthostatic hypotension, impotence (he has sildenafil on reconcile meds), urinary and GI symptoms as well. Also Autonomic failure is possible, a disorder of noradrenergic neurotransmission in which postganglionic sympathetic neurons do not release norepinephrine appropriately. Vasculitis as also possible. Problem list: * Orthostatic hypotension associated with dizziness, nausea, vomiting * Hyperlipidemia * Raynaud's phenomena * Stron fx of colon cancer * Color blindness * Lyme undetermined test results Plan: * Admitted to general medicine floor * IV hydration with normal saline * Check morning cortisol, if low or normal call endocrinology consult * U tox * Continue doxycycline for possible Lyme * ESR and CRP for autoimmune disease. * Guaiac stool, given possible pathology on CT abdomine and Color blindness (GI bleed cant be ruled out) * Consider OSIEL -Regular diet -DVT PPx with SC heprin and ALPS -FC Clive Jones 12/02/17 0645: Core Measures/Misc (03/06) Sepsis (View protocol) If YES complete Sepsis Event Note If YES complete Sepsis Event Note Attending MD Review Statement Attending Statement Attending MD Statement: examined this patient, discuss w/resident/PA/[employer], agreed w/resident/PA/[employer], reviewed EMR data (avail), reviewed images, amended to note Attending Assessment/Plan: CC: Hypotension PMH: HLD, Raynaud's phenomena 52-year-old male with no significant past medical history presented in ER for low blood pressure from primary care office. Since last 2 weeks patient had been noticing malaise, fatigue, cough, low-grade fever and sore throat which eventually resolved but nausea and vomiting persisted. He vomited 2 times in 7 days. He is more concerned about fatigue and lethargy. He is feeling dizzy whenever he was standing up. He followed up with his primary care physician and underwent extensive workup including abdominal CT scan chest CT scan. On today's follow-up his blood pressure was even lower dose he was sent to ER. Meanwhile patient also had an ER visit where Lyme titers were checked and he was started on doxycycline. He denied similar complaints in the past, denies chest pain palpitations. He underwent 2-D echocardiogram today. Even though with His prescription for Viagra he denied taking any pills in last 2 weeks. No regular medications are buca-cja-urvbsxy supplements. Patient has mild discomfort in upper abdomen feels like nausea but denies any heartburn. Vitals: Temperature 97.8, pulse 79, RR 15, blood pressure 98/63, saturating 97% on room air On exam: A O 3, cooperative, no acute distress, neck supple, JVD normal, no lymphadenopathy, mucosa moist, no focal neurological deficit, no dependent edema , no obvious skin rashes or inflammation CVS: S1-S2, RRR. RS: Clear to auscultate bilaterally. Abdomen: Soft, NT, ND, bowel sounds present. CTA chest done on November 27: 1. No pulmonary embolism. 2. No evidence of pneumonia or acute pulmonary pathology. 3. Scattered coronary artery calcification. CT chest abdomen with oral and IV contrast: 1. No CT evidence for acute abnormality within the abdomen or pelvis. 2. Mild to moderate stool burden throughout the colon, particularly the proximal colon. 3. Approximately 2 cm segmental region of apparent mucosal wall thickening of the splenic flexure. This is a nonspecific finding and was less apparent on chest CT from 3 days prior. I suspect this represents a region of colonic contraction, however, an underlying colonic lesion cannot be entirely excluded. Attention to this region on follow-up is recommended with either repeat imaging or colonoscopy. Assessment and plan 52-year-old male with no significant past medical history was sent to ER from primary care office for persistent low blood pressure. Patient has been having symptoms since last 2 weeks with generalized fatigue, malaise, low-grade fever, cough and sore throat nausea and intermittent vomiting. All the symptoms resolved except nausea, discomfort in epigastric region and vomiting. Patient feels dizzy when he stands up. He was orthostatic positive in ER otherwise complete examination and labs unremarkable. His cortisol level was 11.2 Needs further workup for this orthostatic hypotension, will hydrate overnight, check a.m. cortisol if low than endocrine consult or else may need autonomic neuropathy workup. Patient was seen recently in ER and was started on lyme Treatment. Will continue the same. On CT scan abdomen done on 30 of November there is incidental finding of small lesion at splenic flexure of the colon. Patient gets colonoscopy every 5 years given his significant family history of colon cancer. I suggested him to get colonoscopy immediately after discharge. + Orthostatic hypotension of unclear etiology - Admit to general medicine - Continue gentle hydration overnight 150 mL per hour for 1 more liter - Reevaluate orthostatic vitals in a.m. - 8 AM cortisol - Check U tox - Continue doxycycline - Obtain recent 2-D echocardiogram report from primary care office (done yesterday).
[2017-12-01 22:08] VITALS: BP 114/64
--- NOTE | 2017-12-02 06:46 | Admission Certification ---
Admission Certification Certification Statement - As attending physician, I certify that at the time of - admission, based on clinical presentation, severity of - symptoms, need for further diagnostic testing and - therapeutic interventions, and risk of adverse outcomes - without in-hospital treatment, in my clinical assessment, - this patient requires an acute hospital stay for a minimum - of two nights or longer. I have also considered psychsocial - factors such as support system, advanced age, financial - issues, cognitive issues, and failed out-patient treatments, - past re-admission history, safety of patient, and lack of - compliance as applicable. Specific rationale supporting this admission is: orthostatic hypotension
[2017-12-02 06:49] VITALS: BP 110/68
--- NOTE | 2017-12-02 07:44 | PN- Housestaff ---
Norma HUANG,Ehsan 12/02/17 0743: Subjective Follow-up For: Orthostatic hypotension Fatigue Low cortisol level Subjective: Patient seen and examined today Reports signifncant fatigue, dizziness with movement, SOB on exertion Patient states symptoms have slightly improved with fluids Reports poor appetite, occasional nausea and abdominal discomfort Denies chest pain, palpitation, fever/chills. No acute events overnight. Review of Systems Constitutional: Reports: see HPI. Objective Last 24 Hrs of Vital Signs/I&O Vital Signs Date Time Temp Pulse Resp B/P B/P Pulse O2 O2 Flow FiO2 Mean Ox Delivery Rate 12/02 1336 98.3 56 17 120/80 95 Room Air 12/02 0649 98.6 54 20 110/68 98 Room Air 12/018 98.7 68 20 114/64 98 Room Air 12/02 2007 98.3 77 16 104/64 98 Room Air Intake & Output 12/02 1600 12/02 0800 12/02 0000 Intake Total 450 1100 Output Total 600 500 Balance -600 -50 1100 Intake, IV 350 1000 Intake, Oral 100 100 Output, Urine 600 500 Patient 220 lb Weight Weight Reported by Patient Measurement Method Physical Exam General Appearance: Alert, Cooperative, No Acute Distress Skin Temp/Moisture Exam: Warm/Dry Sepsis Skin Exam (color): Normal for Ethnicity HEENT: Atraumatic, PERRLA, EOMI, Mucous Membr. moist/pink Cardiovascular: Regular Rate, Normal S1, Normal S2 Lungs: Clear to Auscultation, Normal Air Movement Abdomen: Normal Bowel Sounds, Soft, No Tenderness Neurological: Normal Speech, Strength at 5/5 X4 Ext, Normal Tone, Sensation Intact, Cranial Nerves 3-12 NL Extremities: No Clubbing, No Cyanosis, No Edema, Normal Pulses, No Tenderness/ Swelling Vascular: Normal Pulses, Pulses Symmetrical Current Medications: Current Medications Sig/Brooks Start time Last Medication Dose Route Stop Time Status Admin Acetaminophen 500 MG Q6P PRN 12/02 194 AC PO Cosyntropin 0.25 MG ONE ONE 12/02 1100 DC 12/02 IV 12/02 1101 1147 Doxycycline Hyclate 100 MG BID 12/02 0900 CAN PO Doxycycline Hyclate 100 MG ONCE ONE 12/01 2014 DC 12/01 PO 12/01 Doxycycline Hyclate 0 .STK-MED ONE 12/01 2001 DC PO Heparin Sodium 5,000 UNIT Q8 12/01 2199 AC 12/02 (Porcine) SC 1359 Lactated Ringer's 1,000 ML Q6H 12/02 0315 DC 12/02 IV 12/02 0914 0456 Ondansetron HCl 4 MG Q6P PRN 12/01 2245 AC 12/02 IV 1916 Patient Medication 1 ED ONE ONE 12/02 1400 DC Teaching ED 12/02 1401 Sodium Chloride 1,000 ML BOLUS ONE 12/02 1945 AC IV 12/03 0544 Last 24 Hrs of Lab/Paddy Results Last 24 Hrs of Labs/Mics: Laboratory Tests 12/02/17 1420: Urine Opiates Screen < 100, Methadone Screen < 40, Barbiturate Screen < 60, Ur Phencyclidine Scrn < 6.00, Amphetamines Screen < 100, U Benzodiazepines Scrn < 85, Urine Cocaine Screen < 50, Urine Cannabis Screen < 5.00 12/02/17 1240: Cortisol PM Sample 20.6 H 12/02/17 0625: Anion Gap 9, Estimated GFR > 60, BUN/Creatinine Ratio 12.5, Iron 76, TIBC 304, Ferritin 115.0, C-React Prot High Sens 1.6, Prolactin 10.7, Total Testosterone 328.0, Cortisol AM Sample 9.8, CBC w Diff NO MAN DIFF REQ, RBC 4.10 L, MCV 88.9 , MCH 30.4, MCHC 34.2, RDW 13.4, MPV 8.9, Gran % 59.7, Lymphocytes % 30.9, Monocytes % 7.5, Eosinophils % 1.6, Basophils % 0.3, Absolute Granulocytes 5.0, Absolute Lymphocytes 2.6, Absolute Monocytes 0.6, Absolute Eosinophils 0.1, Absolute Basophils 0, ESR Westergren 42 H Assessment/Plan Assessment: Patient is a 52-year-old male with past medical history of hyperlipidemia, Raynaud's syndrome, strong family history of colon cancer presenting with fatigue, malaise, nausea/vomiting, orthostatic hypotension, recently seen in the emergency department on November 27 and treated for Lyme disease sent home with doxycycline. Today patient continues to remain orthostatic, endorses dizziness, fatigue and vague abdominal discomfort. CT abdomen and pelvis done showing no acute findings. However does show mucosal wall thickening of the splenic flexure, patient has significant family history of colon cancer. Patient had a.m. cortisol level done which was borderline at 9.8. Cosyntropin test was done today which was normal at 20. Endocrinology was consulted and additional labs including prolactin, total testosterone, FSH and LH were sent. Patient's Lyme titers were reviewed and patient does not meet criteria for Lyme disease. Doxycycline was discontinued today. Patient this evening continues to remain dizzy. 1 bag of IV fluids was restarted. Patient's H/H dropped this today. Iron studies wnl. 1. Orthostatic hypotension 2. Anemia 3. Fatigue 4. Chronic conditions: HLD, Raynauds Plan: Admitted to [facility] Endocrinology consulted Follow up testosterone, prolactin, LH, FSH Orthostatic vital signs IV fluids- NS @ 100cc/hr x 1L Repeat H/H in AM Guiac all stool DVT PPx: Heparin SC Diet: Regular Code: Full code Problem List: 1. Orthostatic hypotension 2. Fatigue 3. Nausea & vomiting Pain Ratin Pain Location: n/a Pain Goal: Remain pain free Pain Plan: tyelnol PRN Tomorrow's Labs & Rationales: cbc Ashwin Taylor MD 12/02/17 1105: Attending MD Review Statement Attending Statement Attending MD Statement: examined this patient, discuss w/resident/PA/SAILOR, agreed w/resident/PA/SAILOR, reviewed EMR data (avail), discussed with nursing, discussed with case mgmt, amended to note Attending Assessment/Plan: Seen and examined. Continues to complain of dizziness particularly with position changes. Denies nausea vomiting at present. Denies abdominal pain. He is afebrile. He is hemodynamically stable. On examination he has no nystagmus for other neurologic deficits. Problems: 1. Orthostatic hypotension 2. Abnormal cortisol level; probably due to adrenal insufficiency. 3. Abnormal Lyme titer; not diagnostic for Lyme disease. 4. Raynaud's disease 5. 2 cm segmental region of wall thickening at the splenic flexure. Colonic lesion cannot be excluded. Plan: -A.m. cortisol level is below the range of 10-20. Recommend cosyntropin stimulation test and evaluation by the endocrinology service. -Fall precautions at all times. -Lying type that is currently in a diagnosis of Lyme disease. Discontinue doxycycline. -Hemoglobin level noted to trend downwards today. Check stool guaiac. Repeat H &H in the a.m. -Follow-up recent echocardiogram done in the outpatient. -Further disposition based on results of cosyntropin testing.
[2017-12-02 07:58] LABS: ABSOLUTE BASOPHIL COUNT 0 /CUMM (0.0-0.2); ABSOLUTE EOSINOPHIL COUNT 0.1 /CUMM (0.0-0.7); EOSINOPHIL % 1.6 % (0-5); MEAN PLATELET VOLUME 8.9 FL (7.4-10.4); WHITE BLOOD CELL COUNT 8.4 /CUMM (4.8-10.8)
[2017-12-02 08:12] LABS: ABSOLUTE LYMPH COUNT 2.6 /CUMM (1.2-3.4); ABSOLUTE MONOCYTE COUNT 0.6 /CUMM (0.10-0.60); BASOPHIL % 0.3 % (0.0-2.0); GRANULOCYTE % 59.7 % (42.2-75.2); HEMATOCRIT 36.4 % (42-52); MEAN CORPUSCULAR HGB 30.4 PG (27.0-31.0); MEAN CORPUSCULAR HGB CONC 34.2 G/DL (33.0-37.0); MEAN CORPUSCULAR VOLUME 88.9 FL (80.0-94.0); PLATELET COUNT 264 /CUMM (130-400); RBC DISTRIBUTION WIDTH 13.4 % (11.5-14.5)
--- NOTE | 2017-12-02 13:00 | Cons- Endocrinology ---
General Information and HPI Consulting Request Date of Consult: 12/02/17 Requested By: medical team Reason for Consult: evaluation of abnormal cortisol Source of Information: patient, old records Exam Limitations: no limitations History of Present Illness: 52-year-old male with a past medical history significant for hyperlipidemia, Raynaud's disease, strong family history of colon cancer who came in with the chief complaint of fatigue, malaise, nausea/vomiting x 2 weeks, orthostatic hypotension following upper respiratory illness. He started having erectile dysfunction approximately 6 months ago. He was on LR 150 ml/hour. Random cortisol was 11.2. The am cortisol from this morning was 9.8. But he was still having diszziness. He is going to have ACTH stimulation test done today. His TSH was 1.19, free T4 1.32 and TT3 1.24. He denied haviung unusual headache. No head trauma. Allergies/Medications Allergies: Coded Allergies: Penicillins (UPSET STOMACH 12/01/17) Home Med List: Doxycycline Hyclate 100 MG TABLET 1 TAB PO BID lyme Ondansetron (Zofran Odt) 4 MG TAB.RAPDIS 1 TAB SL TID PRN nausea Review of Systems Review of Systems Constitutional: Reports: see HPI. Cardiovascular: Denies: chest pain. Respiratory: Denies: short of breath. GI: Reports: nausea. Genitourinary: Denies: dysuria. Hematologic/Endocrine: Denies: polyuria, polydipsia. 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 Home Services at Home: None Smoking Status: Former Smoker ETOH Use: occasional use Illicit Drug Use: denies illicit drug use Exam & Diagnostic Data Last 24 Hrs of Vital Signs/I&O Vital Signs Date Time Temp Pulse Resp B/P B/P Pulse O2 O2 Flow FiO2 Mean Ox Delivery Rate 12/02 0649 98.6 54 20 110/68 98 Room Air 06/14 2208 98.7 68 20 114/64 98 Room Air 12/02 2007 98.3 77 16 104/64 98 Room Air 12/01 1900 Room Air Room Air 12/01 1804 125/67 12/01 1423 97.8 79 15 98/63 97 Room Air Room Air Intake & Output 12/02 1600 12/02 0800 12/02 0000 Intake Total 450 1100 Output Total 500 Balance -50 1100 Intake, IV 350 1000 Intake, Oral 100 100 Output, Urine 500 Patient 220 lb Weight Weight Reported by Patient Measurement Method Physical Exam General Appearance: no apparent distress Neck: normal inspection Respiratory: decreased breath sounds Cardiovascular: regular rate/rhythm Gastrointestinal: soft, non-tender Extremities: no edema Labs/Paddy Results: Laboratory Tests 12/02 12/01 0625 1929 Chemistry Sodium (137 - 145 mmol/L) 139 Potassium (3.5 - 5.1 mmol/L) 4.6 Chloride (98 - 107 mmol/L) 103 Carbon Dioxide (22 - 30 mmol/L) 27 Anion Gap (5 - 16) 9 BUN (9 - 20 mg/dL) 15 Creatinine (0.7 - 1.2 mg/dL) 1.2 Estimated GFR (>60 ml/min) > 60 BUN/Creatinine Ratio (7 - 25 %) 12.5 Troponin I (<0.11 ng/ml) < 0.01 C-React Prot High Sens (1.0 - 3.0 mg/L) 1.6 Free T4 (0.64 - 1.79 ng/dL) 1.32 Total T3 (0.97 - 1.69 ng/mL) 1.24 TSH &T3 &Free T4 Intrp (0.27 - 4.20 uIU/mL) 1.190 Cortisol AM Sample (4.46 - 22.7 ug/dL) 9.8 Hematology CBC w Diff NO MAN DIFF REQ WBC (4.8 - 10.8 /CUMM) 8.4 RBC (4.70 - 6.10 /CUMM) 4.10 L Hgb (14.0 - 18.0 G/DL) 12.4 L Hct (42 - 52 %) 36.4 L MCV (80.0 - 94.0 FL) 88.9 MCH (27.0 - 31.0 PG) 30.4 MCHC (33.0 - 37.0 G/DL) 34.2 RDW (11.5 - 14.5 %) 13.4 Plt Count (130 - 400 /CUMM) 264 MPV (7.4 - 10.4 FL) 8.9 Gran % (42.2 - 75.2 %) 59.7 Lymphocytes % (20.5 - 51.1 %) 30.9 Monocytes % (1.7 - 9.3 %) 7.5 Eosinophils % (0 - 5 %) 1.6 Basophils % (0.0 - 2.0 %) 0.3 Absolute Granulocytes (1.4 - 6.5 /CUMM) 5.0 Absolute Lymphocytes (1.2 - 3.4 /CUMM) 2.6 Absolute Monocytes (0.10 - 0.60 /CUMM) 0.6 Absolute Eosinophils (0.0 - 0.7 /CUMM) 0.1 Absolute Basophils (0.0 - 0.2 /CUMM) 0 ESR Westergren (0 - 10 MM) 42 H 12/01 12/01 1816 1816 Urines Urine Color (YEL,AMB,STR) STRAW Urine Clarity (CLEAR) CLEAR Urine pH (5.0 - 8.0) 6.0 Ur Specific [place] (1.001 - 1.035) <= 1.005 Urine Protein (NEG,<30 MG/DL) NEG Urine Ketones (NEG) NEG Urine Nitrite (NEG) NEG Urine Bilirubin (NEG) NEG Urine Urobilinogen (0.1 - 1.0 EU/dl) 0.2 Ur Leukocyte Esterase (NEG) NEG Ur Microscopic EXAM NOT REQUIRED Urine Hemoglobin (NEG) NEG Ur Random Creatinine (mg/dL) 91.3 Ur Random Sodium (30 - 90 mmol/L) 14 L Ur Random Potassium (mmol/L) 14.5 Fraction Sodium Excret (<1% %) 0.1 Urine Glucose (N MG/DL) NEG 12/01 1440 Chemistry Sodium (137 - 145 mmol/L) 137 Potassium (3.5 - 5.1 mmol/L) 4.4 Chloride (98 - 107 mmol/L) 101 Carbon Dioxide (22 - 30 mmol/L) 24 Anion Gap (5 - 16) 12 BUN (9 - 20 mg/dL) 15 Creatinine (0.7 - 1.2 mg/dL) 1.3 H Estimated GFR (>60 ml/min) 58 L BUN/Creatinine Ratio (7 - 25 %) 11.5 Glucose (65 - 99 mg/dL) 91 Calcium (8.4 - 10.2 mg/dL) 9.5 Phosphorus (2.5 - 4.5 mg/dL) 4.4 Magnesium (1.6 - 2.3 mg/dL) 2.1 Total Bilirubin (0.2 - 1.3 mg/dL) 0.6 AST (17 - 59 U/L) 29 ALT (21 - 72 U/L) 36 Alkaline Phosphatase (< 127 U/L) 78 Total Protein (6.3 - 8.2 g/dL) 7.6 Albumin (3.5 - 5.0 g/dL) 4.1 Globulin (1.9 - 4.2 gm/dL) 3.5 Albumin/Globulin Ratio (1.1 - 2.2 %) 1.2 Lipase (23 - 300 U/L) 122 Cortisol PM Sample (1.7 - 14.1) 11.2 Hematology CBC w Diff NO MAN DIFF REQ WBC (4.8 - 10.8 /CUMM) 9.6 RBC (4.70 - 6.10 /CUMM) 4.68 L Hgb (14.0 - 18.0 G/DL) 14.1 Hct (42 - 52 %) 41.2 L MCV (80.0 - 94.0 FL) 88.1 MCH (27.0 - 31.0 PG) 30.1 MCHC (33.0 - 37.0 G/DL) 34.2 RDW (11.5 - 14.5 %) 13.3 Plt Count (130 - 400 /CUMM) 246 MPV (7.4 - 10.4 FL) 8.1 Gran % (42.2 - 75.2 %) 61.7 Lymphocytes % (20.5 - 51.1 %) 27.1 Monocytes % (1.7 - 9.3 %) 9.3 Eosinophils % (0 - 5 %) 1.3 Basophils % (0.0 - 2.0 %) 0.6 Absolute Granulocytes (1.4 - 6.5 /CUMM) 5.9 Absolute Lymphocytes (1.2 - 3.4 /CUMM) 2.6 Absolute Monocytes (0.10 - 0.60 /CUMM) 0.9 H Absolute Eosinophils (0.0 - 0.7 /CUMM) 0.1 Absolute Basophils (0.0 - 0.2 /CUMM) 0.1 Assessment/Plan Assessment/Plan 52-year-old male with a past medical history significant for hyperlipidemia, Raynaud's disease, strong family history of colon cancer who came in with the chief complaint of fatigue, malaise, nausea/vomiting x 2 weeks, orthostatic hypotension following upper respiratory illness. He started having erectile dysfunction approximately 6 months ago. He was on LR 150 ml/hour. Random cortisol was 11.2. The am cortisol from this morning was 9.8. But he was still having diszziness. His TSH was 1.19, free T4 1.32 and TT3 1.24. Dx: orthostatic hypotension abnormal cortisol fatigue Plan: 1. agree with ACTH stimulation test; 2. check total testosterone, FSH, LH and prolactin which can be added on to am lab; 3. continue monitoring vital signs will follow and then the further evaluation will be determined accordingly. Consult Acknowledgment - Thank you for your consult request.
[2017-12-02 13:36] VITALS: BP 120/80
[2017-12-02 22:02] VITALS: BP 132/69
[2017-12-03 06:04] VITALS: BP 116/78
--- NOTE | 2017-12-03 08:40 | PN- Housestaff ---
Laisha HUANG,[place] 12/03/17 0840: Subjective Follow-up For: orthostatic hypotension low cortisol Subjective: patient complaints of feeling significant weakness and lethargy previously very active complains of 2 weeks of lightheaded and lethargy Review of Systems Constitutional: Reports: see HPI. Objective Last 24 Hrs of Vital Signs/I&O Vital Signs Date Time Temp Pulse Resp B/P B/P Pulse O2 O2 Flow FiO2 Mean Ox Delivery Rate 12/03 0604 98.7 54 16 116/78 99 Room Air 12/02 2201 98.9 56 18 132/69 98 Intake & Output 12/03 1600 12/03 0800 12/03 0000 Intake Total 500 700 350 Output Total 400 Balance 500 700 -50 Intake, IV 700 Intake, Oral 500 350 Output, Urine 400 Physical Exam General Appearance: Alert, Oriented X3, Cooperative, No Acute Distress Cardiovascular: Regular Rate, Normal S1, Normal S2, No Murmurs Lungs: Clear to Auscultation, Normal Air Movement Abdomen: Normal Bowel Sounds, Soft, No Tenderness, No Masses Extremities: No Clubbing, No Cyanosis, No Edema, Normal Pulses, No Tenderness/ Swelling Current Medications: Current Medications Sig/Brooks Start time Last Medication Dose Route Stop Time Status Admin Acetaminophen 500 MG Q6P PRN 12/02 194 AC 12/03 PO 1343 Bismuth Subsalicylate 30 ML ONCE ONE 12/03 414 DC 12/03 PO 12/04 415 0521 Heparin Sodium 5,000 UNIT Q8 12/01 2200 AC 12/03 (Porcine) SC 1343 Ondansetron HCl 4 MG .STK-MED ONE 12/037 DC IM 12/03 0318 Ondansetron HCl 4 MG Q6P PRN 12/01 2245 12/03 IV 1344 Sodium Chloride 1,000 ML BOLUS ONE 12/02 1944 DC 12/02 IV 12/03 0444 2008 Last 24 Hrs of Lab/Paddy Results Last 24 Hrs of Labs/Mics: Laboratory Tests 12/03/17624: CBC w Diff NO MAN DIFF REQ, RBC 4.10 L, MCV 89.4, MCH 30.2, MCHC 33.7, RDW 13.1 , MPV 9.1, Gran % 53.2, Lymphocytes % 35.8, Monocytes % 8.9, Eosinophils % 1.7, Basophils % 0.4, Absolute Granulocytes 3.4, Absolute Lymphocytes 2.3, Absolute Monocytes 0.6, Absolute Eosinophils 0.1, Absolute Basophils 0 Assessment/Plan Assessment: 52 year old male with PMH of hyperlipidemia, Raynaud's syndrome, strong family history of colon cancer presenting with significant fatigue, malaise, and orthostatic hypotension, recently treated for Lyme (November 27) with doxycycline. Orthostatic hypotension: Low cortisol and ACTH stimulation with cortisol increased to 20 Endocrinology consulted, appreciate recommendations Repeat morning cortisol, ACTH, renin and aldosterone Repeat orthostatic vital signs Anemia: Guiaic BMs, iron studies wnl CT abdomen and pelvis shows mucosal wall thickening of the splenic flexure Patient has significant family history of colon cancer Reportedly negative colonoscopy 3 years ago Fatigue: Lyme IGGs not diagnostic Antibiotics discontinued DVT ppx-heparin subcutaneous Regular diet Full code Problem List: 1. Orthostatic hypotension 2. Fatigue Pain Ratin Pain Location: N/A Pain Goal: Pain 4 or less Pain Plan: prn Tomorrow's Labs & Rationales: bep, acth, cortisol, renin, aldosterone Ashley Jane 12/03/17 1119: Attending MD Review Statement Attending Statement Attending MD Statement: examined this patient, discuss w/resident/PA/FINISH SPECIALIST, agreed w/resident/PA/FINISH SPECIALIST, discussed with family, reviewed EMR data (avail), discussed with nursing, discussed with case mgmt, reviewed images, amended to note Attending Assessment/Plan: Patient Continues to complain of dizziness particularly with position changes. He is hemodynamically stable. He is found to have Orthostatic hypotension with Abnormal cortisol level Follow endocrinology. Abnormal Lyme titer; not diagnostic for Lyme disease. Raynaud's disease 2 cm segmental region of wall thickening at the splenic flexure. Colonic lesion cannot be excluded. Fall precautions at all times.
[2017-12-03 08:54] LABS: ABSOLUTE BASOPHIL COUNT 0 /CUMM (0.0-0.2); ABSOLUTE EOSINOPHIL COUNT 0.1 /CUMM (0.0-0.7); ABSOLUTE GRANULOCYTE CT 3.4 /CUMM (1.4-6.5); ABSOLUTE LYMPH COUNT 2.3 /CUMM (1.2-3.4); ABSOLUTE MONOCYTE COUNT 0.6 /CUMM (0.10-0.60); BASOPHIL % 0.4 % (0.0-2.0); EOSINOPHIL % 1.7 % (0-5); GRANULOCYTE % 53.2 % (42.2-75.2); HEMATOCRIT 36.7 % (42-52); MEAN CORPUSCULAR HGB 30.2 PG (27.0-31.0); MEAN CORPUSCULAR HGB CONC 33.7 G/DL (33.0-37.0); MEAN CORPUSCULAR VOLUME 89.4 FL (80.0-94.0); MEAN PLATELET VOLUME 9.1 FL (7.4-10.4); PLATELET COUNT 202 /CUMM (130-400); RBC DISTRIBUTION WIDTH 13.1 % (11.5-14.5); WHITE BLOOD CELL COUNT 6.4 /CUMM (4.8-10.8)
--- NOTE | 2017-12-03 12:47 | PN- Endocrinology ---
Assessment/Plan Endoscopy Assessment: 52-year-old male with a past medical history significant for hyperlipidemia, Raynaud's disease, strong family history of colon cancer who came in with the chief complaint of fatigue, malaise, nausea/vomiting x 2 weeks, orthostatic hypotension following upper respiratory illness. He started having erectile dysfunction approximately 6 months ago. He was on LR 150 ml/hour. Random cortisol was 11.2. The am cortisol from 2017 was 9.8. But he was still having diszziness.ACTH stimulation test was done and cortisol level after he received ACTH was up to 20.6 which is normal. His TSH was 1.19, free T4 1.32 and TT3 1.24; am testosterone was 328, FSH 1.5, LH 1.5 and prolactin was 10.7. Patient still has orthostatic hypotension and still feels dizzy. However, he stated that he did feel better for several hours after he did ACTH stimulation test. Plan: 1. repeat am cortisol tomorrow am just to make sure; 2. check ACTH tomorrow am; 3. check PRA and aldosterone and repeat BMP tomorrow am 4. will consider MRI of pituitary if his repeat am cortisol tomorrow morning is low. will follow. Subjective Subjective: He still feels dizzy. Objective Last 24 Hrs of Vital Signs/I&O Vital Signs Date Time Temp Pulse Resp B/P B/P Pulse O2 O2 Flow FiO2 Mean Ox Delivery Rate 12/03 0604 98.7 54 16 116/78 99 Room Air 12/02 2202 98.9 56 18 132/69 98 12/02 1336 98.3 56 17 120/80 95 Room Air Intake & Output 12/03 1600 12/03 0800 12/03 0000 Intake Total 700 350 Output Total 400 Balance 700 -50 Intake, IV 700 Intake, Oral 350 Output, Urine 400 Results Pertinent Lab/Paddy Results: Laboratory Tests 12/03 12/02 0625 1420 Hematology CBC w Diff NO MAN DIFF REQ WBC (4.8 - 10.8 /CUMM) 6.4 RBC (4.70 - 6.10 /CUMM) 4.10 L Hgb (14.0 - 18.0 G/DL) 12.4 L Hct (42 - 52 %) 36.7 L MCV (80.0 - 94.0 FL) 89.4 MCH (27.0 - 31.0 PG) 30.2 MCHC (33.0 - 37.0 G/DL) 33.7 RDW (11.5 - 14.5 %) 13.1 Plt Count (130 - 400 /CUMM) 202 MPV (7.4 - 10.4 FL) 9.1 Gran % (42.2 - 75.2 %) 53.2 Lymphocytes % (20.5 - 51.1 %) 35.8 Monocytes % (1.7 - 9.3 %) 8.9 Eosinophils % (0 - 5 %) 1.7 Basophils % (0.0 - 2.0 %) 0.4 Absolute Granulocytes (1.4 - 6.5 /CUMM) 3.4 Absolute Lymphocytes (1.2 - 3.4 /CUMM) 2.3 Absolute Monocytes (0.10 - 0.60 /CUMM) 0.6 Absolute Eosinophils (0.0 - 0.7 /CUMM) 0.1 Absolute Basophils (0.0 - 0.2 /CUMM) 0 Toxicology Urine Opiates Screen (>2000 NG/ML) < 100 Methadone Screen (>300 NG/ML) < 40 Barbiturate Screen (>200 NG/ML) < 60 Ur Phencyclidine Scrn (>25 NG/ML) < 6.00 Amphetamines Screen (>1000 NG/ML) < 100 U Benzodiazepines Scrn (>200 NG/ML) < 85 Urine Cocaine Screen (>300 NG/ML) < 50 Urine Cannabis Screen (>50 NG/ML) < 5.00
[2017-12-03 21:39] VITALS: BP 116/64
[2017-12-04 06:40] VITALS: BP 108/60
--- NOTE | 2017-12-04 09:16 | PN- Housestaff ---
Norma HUANG,Ehsan 12/04/17 0904: Subjective Follow-up For: Orthostatic hypotension Fatigue Low cortisol level Subjective: Patient seen and examined today. Patient reports he has signficant dizziness and lightheadedness with standing this morning. Patient's orthostatic vitals this morning were positive. Patient was started on IV steroids. Repeat vitals this afternoon continue to be orthostatic positive however signficantly imrpoved from earlier. Review of Systems Constitutional: Reports: see HPI. Objective Last 24 Hrs of Vital Signs/I&O Vital Signs Date Time Temp Pulse Resp B/P B/P Pulse O2 O2 Flow FiO2 Mean Ox Delivery Rate 12/04 0640 98.3 50 18 108/60 98 Room Air 12/03 2139 99.0 56 18 116/64 98 Intake & Output 12/04 1600 12/04 0800 12/04 0000 Intake Total 200 300 Output Total Balance 200 300 Intake, Oral 200 300 Physical Exam General Appearance: Alert, Cooperative, No Acute Distress HEENT: Atraumatic, Mucous Membr. moist/pink Cardiovascular: Regular Rate, Normal S1, Normal S2 Lungs: Clear to Auscultation, Normal Air Movement Abdomen: Normal Bowel Sounds, Soft, No Tenderness Neurological: Normal Speech, Strength at 5/5 X4 Ext, Normal Tone, Sensation Intact, Cranial Nerves 3-12 NL Extremities: No Clubbing, No Cyanosis, No Edema, Normal Pulses, No Tenderness/ Swelling Current Medications: Current Medications Sig/Brooks Start time Last Medication Dose Route Stop Time Status Admin Acetaminophen 500 MG Q6P PRN 12/02 1945 AC 12/03 PO 2151 Bismuth Subsalicylate 30 ML ONCE ONE 12/03 2215 DC 12/03 PO 12/03 2216 2214 Heparin Sodium 5,000 UNIT Q8 12/01 2200 12/04 (Porcine) SC 0552 Ondansetron HCl 4 MG .STK-MED ONE 12/03 2146 DC IM 12/03 2147 Ondansetron HCl 4 MG .STK-MED ONE 12/03 1341 DC IM 12/03 1342 Ondansetron HCl 4 MG Q6P PRN 12/01 2245 12/04 IV 0553 Last 24 Hrs of Lab/Paddy Results Last 24 Hrs of Labs/Mics: Laboratory Tests 12/04/17 0905: Anion Gap 10, Estimated GFR > 60, BUN/Creatinine Ratio 11.0, Cortisol AM Sample 9.8 Assessment/Plan Assessment: Patient is a 52-year-old male with past medical history of hyperlipidemia, Raynaud's syndrome, strong family history of colon cancer presenting with fatigue, malaise, nausea/vomiting, orthostatic hypotension, recently seen in the emergency department on November 27 and treated for Lyme disease sent home with doxycycline. 1. Orthostatic hypotension 2. Anemia 3. Fatigue 4. Chronic conditions: HLD, Raynauds Orthostatic hypotension: Patient today was significantly hypotensive on standing. AM cortisol level today is 9.8. Patient started on IV Solu-Cortef 25mg BID today. Low cortisol and ACTH stimulation with cortisol increased to 20 Endocrinology consulted, appreciate recommendations Follwo up renin and aldosterone Repeat orthostatic vital signs q6h Cardiology consult MRI of pituitary tomorrow Anemia: H/H stable, Guiaic BMs, iron studies wnl, CT abdomen and pelvis shows mucosal wall thickening of the splenic flexure, patient has significant family history of colon cancer, reportedly negative colonoscopy 3 years ago. Continue to monitor H/H Continue to guiac all stool Fatigue: Lyme IGGs not diagnostic Repeat Lyme titers Antibiotics pending repeat titers DVT ppx-heparin subcutaneous Regular diet Full code Problem List: 1. Orthostatic hypotension 2. Fatigue Pain Ratin Pain Location: n/a Pain Goal: Remain pain free Pain Plan: prn Tomorrow's Labs & Rationales: cbc bep Ashley Jane 12/04/17 1054: Attending MD Review Statement Attending Statement Attending MD Statement: examined this patient, discuss w/resident/PA/SHANK SORTER, agreed w/resident/PA/SHANK SORTER, discussed with family, reviewed EMR data (avail), discussed with nursing, discussed with case mgmt, reviewed images, amended to note Attending Assessment/Plan: Patient labs this am pending including renin and aldosterone levels, cortisol levels and ACTH levels. Follow endocrinology recommendations. Monitor vitals.
--- NOTE | 2017-12-04 12:04 | PN- Endocrinology ---
Assessment/Plan Endoscopy Assessment: 52-year-old male with a past medical history significant for hyperlipidemia, Raynaud's disease, strong family history of colon cancer who came in with the chief complaint of fatigue, malaise, nausea/vomiting x 2 weeks, orthostatic hypotension following upper respiratory illness. He started having erectile dysfunction approximately 6 months ago. He was on LR 150 ml/hour. Random cortisol was 11.2. The am cortisol from 2017 was 9.8. But he was still having diszziness.ACTH stimulation test was done and cortisol level after he received ACTH was up to 20.6 which is normal. However, he stated that he did feel better for several hours after he did ACTH stimulation test. His TSH was 1.19, free T4 1.32 and TT3 1.24; am testosterone was 328, FSH 1.5, LH 1.5 and prolactin was 10.7. On 12/04/2017. am cortisol 9.8, ACTH is pending, sodium 138, K 3.6, aldosterone and PRA are pending. But patient still feels dizzy when he gets up. He still has orthostatic hypotension ( laying down 90/60, sitting up 84/56. standing up 70/50 ). On 11/27/2017, Lyme testing showed positive bands of 41 KD-IgG and 23 KD-IgM. Plan: 1. In the setting of having orthostatic hypotension, am cortisol of 9.8 is suboptimal. I will recommend a trial of hydrocortisone 25 mg iv twice a day today; 2. hold off on IV NS bolus; 3. monitor orthostatic BP every 6 hours; 4. if his orthostatic hypotension improves after he receives the stress dose of hydrocortisone, I will recommend having pituitary MRI done to r/o any pituitary and hypothalamus lesions. 5. he has had abnormal LYME test on 11/2017 with positive band of 23 KD-IgM, I will recommend repeating Lyme test and having cardiology consult ( Dr. Lopez). Subjective Subjective: He still feels dizzy when he gets up. Objective Last 24 Hrs of Vital Signs/I&O Vital Signs Date Time Temp Pulse Resp B/P B/P Pulse O2 O2 Flow FiO2 Mean Ox Delivery Rate 12/04 0640 98.3 50 18 108/60 98 Room Air 12/03 2139 99.0 56 18 116/64 98 Intake & Output 12/04 1600 12/04 0800 12/04 0000 Intake Total 200 300 Output Total Balance 200 300 Intake, Oral 200 300 Results Pertinent Lab/Paddy Results: Laboratory Tests 12/04 0905 Chemistry Sodium (137 - 145 mmol/L) 138 Potassium (3.5 - 5.1 mmol/L) 3.6 Chloride (98 - 107 mmol/L) 106 Carbon Dioxide (22 - 30 mmol/L) 22 Anion Gap (5 - 16) 10 BUN (9 - 20 mg/dL) 11 Creatinine (0.7 - 1.2 mg/dL) 1.0 Estimated GFR (>60 ml/min) > 60 BUN/Creatinine Ratio (7 - 25 %) 11.0 Cortisol AM Sample (4.46 - 22.7 ug/dL) 9.8
[2017-12-04 15:21] VITALS: BP 102/58
[2017-12-04 21:55] VITALS: BP 107/62
[2017-12-05 06:20] VITALS: BP 102/66
--- NOTE | 2017-12-05 07:11 | PN- Housestaff ---
Nroma HUANG,Ehsan 12/05/17 0711: Subjective Follow-up For: Orthostatic hypotension Fatigue Low cortisol level Subjective: Patient seen and examined today. Patient continues to report dizziness and lightheadedness with standing however reports that he feels better after receiving the steroids. Continues to feel weak and fatigued. Denies fever, chills, chest pain, palpitations, n/v/c/d, hematuria/dysuria. Patient remains orthostatic positive- however improved from previous day. Review of Systems Constitutional: Reports: see HPI. Objective Last 24 Hrs of Vital Signs/I&O Vital Signs Date Time Temp Pulse Resp B/P B/P Pulse O2 O2 Flow FiO2 Mean Ox Delivery Rate 12/05 0620 98.4 67 18 102/66 98 Room Air 12/04 2155 98.3 55 18 107/62 93 12/04 1600 Room Air 12/04 1521 97.9 60 18 102/58 96 Intake & Output 12/05 1600 12/05 0800 12/05 0000 Intake Total 200 940 Output Total Balance 200 940 Intake, Oral 200 940 Physical Exam General Appearance: Alert, Oriented X3, Cooperative, No Acute Distress HEENT: Atraumatic, PERRLA, EOMI, Mucous Membr. moist/pink, no visual field defects Cardiovascular: Regular Rate, Normal S1, Normal S2, No Murmurs Lungs: Clear to Auscultation, Normal Air Movement Abdomen: Normal Bowel Sounds, Soft, No Tenderness Neurological: Normal Speech, Strength at 5/5 X4 Ext, Normal Tone, Sensation Intact, Cranial Nerves 3-12 NL Extremities: No Clubbing, No Cyanosis, No Edema, Normal Pulses, No Tenderness/ Swelling Current Medications: Current Medications Sig/Brooks Start time Last Medication Dose Route Stop Time Status Admin Acetaminophen 500 MG Q6P PRN 12/02 1945 AC 12/04 PO 1624 Heparin Sodium 5,000 UNIT Q8 12/01 2200 AC 12/05 (Porcine) SC 0438 Hydrocortisone 25 MG BID 12/04 1130 AC 12/05 Sodium Succinate IV 0903 Ondansetron HCl 4 MG Q6P PRN 12/01 2245 AC 12/04 IV 0553 Sodium Chloride 1,000 ML BOLUS ONE 12/04 1115 CAN IV 12/04 1754 Last 24 Hrs of Lab/Paddy Results Last 24 Hrs of Labs/Mics: Laboratory Tests 12/05/17 0625: Anion Gap 8, Estimated GFR > 60, BUN/Creatinine Ratio 10.9, CBC w Diff NO MAN DIFF REQ, RBC 4.23 L, MCV 87.1, MCH 30.4, MCHC 34.9, RDW 13.0, MPV 9.3, Gran % 55.9, Lymphocytes % 34.7, Monocytes % 7.9, Eosinophils % 1.0, Basophils % 0.5, Absolute Granulocytes 4.2, Absolute Lymphocytes 2.6, Absolute Monocytes 0.6, Absolute Eosinophils 0.1, Absolute Basophils 0 12/04/172007: Renin Pending, Aldosterone Pending, ACTH Stimulation Pending Assessment/Plan Assessment: phong is a 52-year-old male with past medical history of hyperlipidemia, Raynaud's syndrome, strong family history of colon cancer presenting with fatigue, malaise, nausea/vomiting, orthostatic hypotension, recently seen in the emergency department on November 27 and treated for Lyme disease sent home with doxycycline. 1. Orthostatic hypotension 2. Anemia 3. Fatigue 4. Chronic conditions: HLD, Raynauds Orthostatic hypotension: Patient today continues to have dizziness and orthostatic positive however improvement with steroids. The etiology of patient's orthostatic hypotension remains unclear. It appears that the adrenal glands are properly responding as patient had a normal ACTH stim test with a response in his cortisol level to 20. Patient was seen by endocrinology. He will have an MRI today to deliniate if this may be due to pituitary dysfuntion. Patient has no overt signs of pituitary mass large enough to cause visual defects or headaches. Other causes of orthostatic hypotension include infectious etiology due to possible lyme disease , medications (however not currently on any antihypertensives or medications that affect the autonomic nervous system), other causes may include dysfunction of the renin-aldosterone angiotensin system however patient's electrolytes remain wnl. Patient may have autonomic dysfunction and would benefit from further cardiac work up. Patient also has a family history of rheumatoid arthritis and has raynaud's and has a rash on his face diagnosed by his enterprise applications manager as hyperplasia. * IV Solu-Cortef 25mg BID continued * Started on Florinef. * Endocrinology consulted, appreciate recommendations * Follow up renin and aldosterone * Repeat orthostatic vital signs q6h * Cardiology consult * Follow up MRI of pituitary today Anemia: H/H stable, Guiaic BMs, iron studies wnl, CT abdomen and pelvis shows mucosal wall thickening of the splenic flexure, patient has significant family history of colon cancer, reportedly negative colonoscopy 3 years ago. Continue to monitor H/H Continue to guiac all stool Fatigue: Lyme IGGs not diagnostic Repeat Lyme titers negative DVT ppx-heparin subcutaneous Regular diet Full code Problem List: 1. Orthostatic hypotension 2. Fatigue Pain Ratin Pain Location: n/a Pain Goal: Remain pain free Pain Plan: prn Tomorrow's Labs & Rationales: Ashwin García MD 12/05/17 1138: Attending MD Review Statement Attending Statement Attending MD Statement: examined this patient, discuss w/resident/PA/SCRATCH POLISHER, agreed w/resident/PA/SCRATCH POLISHER, reviewed EMR data (avail), discussed with nursing, discussed with case mgmt, amended to note Attending Assessment/Plan: Patient seen and examined. Resting comfortably and not in acute distress. Reports feeling better compared to presentation was still admits to dizziness with position changes. He has been started on systemic steroid therapy as recommended by the endocrinology service for his adrenal insufficiency. He had a normal response to ACTH stimulation suggesting adequate functioning of the adrenal glands. reports feeling better after receiving steroids however he still with orthostatic blood pressure changes. Recommendations: -Continue hydrocortisone. repeat orthostatic vitals tomorrow morning. If improving may transition to oral steroid therapy and follow-up in the outpatient. -MRI ordered to rule out pituitary causes of his adrenal insufficiency. Follow- up levels of aldosterone and PRA -He is noted to be in sinus bradycardia on occasion here in the hospital. His heart rate goes improved with stimulation. -He had a cardiac workup done as an outpatient including an echocardiogram. Please consult his cloth shader and obtain results of the echocardiogram.
[2017-12-05 08:32] LABS: ABSOLUTE BASOPHIL COUNT 0 /CUMM (0.0-0.2); ABSOLUTE EOSINOPHIL COUNT 0.1 /CUMM (0.0-0.7); ABSOLUTE GRANULOCYTE CT 4.2 /CUMM (1.4-6.5); ABSOLUTE LYMPH COUNT 2.6 /CUMM (1.2-3.4); ABSOLUTE MONOCYTE COUNT 0.6 /CUMM (0.10-0.60); BASOPHIL % 0.5 % (0.0-2.0); GRANULOCYTE % 55.9 % (42.2-75.2); HEMATOCRIT 36.8 % (42-52); MEAN CORPUSCULAR HGB 30.4 PG (27.0-31.0); MEAN CORPUSCULAR HGB CONC 34.9 G/DL (33.0-37.0); MEAN CORPUSCULAR VOLUME 87.1 FL (80.0-94.0); MEAN PLATELET VOLUME 9.3 FL (7.4-10.4); PLATELET COUNT 249 /CUMM (130-400); RED BLOOD CELL CT 4.23 /CUMM (4.70-6.10); WHITE BLOOD CELL COUNT 7.6 /CUMM (4.8-10.8)
--- NOTE | 2017-12-05 12:47 | MRI REPORT ---
EXAMINATION: MR BRAIN WITHOUT AND WITH CONTRAST CLINICAL INFORMATION: Rule out pituitary lesion. Orthostatic hypotension. COMPARISON: None available. TECHNIQUE: Multiplanar, multisequence imaging of the brain was performed before and after the intravenous administration of 10 mL of Gadavist. FINDINGS: The pituitary gland is small in size with maximal height measuring 2.5 mm which is more than 2 standard deviations below the mean. There is no sellar mass or differentially enhancing lesion within the adenohypophysis. The posterior pituitary bright spot is present. The cavernous sinus demonstrates normal symmetric enhancement. The infundibulum appears normal and inserts just right of midline. The visualized optic apparatus appears normal. There is no acute infarct, hemorrhage, mass, or extra-axial collection. No abnormal or unexpected intracranial enhancement is seen. There are a few scattered foci of T2 prolongation within the cerebral white matter and central kris which are nonspecific. Major arterial flow voids are preserved at the skull base. There is trace fluid in the right mastoid tip. There is mild paranasal sinus mucosal thickening. IMPRESSION: - The pituitary gland is small in size measuring more than 2 standard deviations below the mean. No pituitary or sellar mass is seen. - No acute intracranial abnormality identified.
[2017-12-05 14:35] VITALS: BP 109/58
--- NOTE | 2017-12-05 17:28 | PN- Endocrinology ---
Assessment/Plan Endoscopy Assessment: 52-year-old male with a past medical history significant for hyperlipidemia, Raynaud's disease, strong family history of colon cancer who came in with the chief complaint of fatigue, malaise, nausea/vomiting x 2 weeks, orthostatic hypotension following upper respiratory illness. He started having erectile dysfunction approximately 6 months ago. He was on LR 150 ml/hour. Random cortisol was 11.2. The am cortisol from 2017 was 9.8. But he was still having diszziness.ACTH stimulation test was done and cortisol level after he received ACTH was up to 20.6 which is normal. However, he stated that he did feel better for several hours after he did ACTH stimulation test. His TSH was 1.19, free T4 1.32 and TT3 1.24; am testosterone was 328, FSH 1.5, LH 1.5 and prolactin was 10.7. On 12/04/2017. am cortisol 9.8, ACTH is pending, sodium 138, K 3.6, aldosterone and PRA are pending. He was put on stress dose of Hydrocortisone 25 mg iv twice a day on 12/04/2017. From energy stand point, he feels better. But patient still feels dizzy when he gets up. He still has orthostatic hypotension. On 11/27/2017, Lyme testing showed positive bands of 41 KD-IgG and 23 KD-IgM. Repeat Lyme test on 12/04/2017-- negative. MRI of pituitary showed his pituitary gland was small in size with maximal height measuring 2.5 mm which is more than 2 SD below the mean. I reviewed the imagings with Dr. Pina and the findings were consistent with partial empty sella. Plan: 1. continue hydrocortisone 25 mg iv twice a day for now; 2. add Florinef 0.1 mg daily 3. continue monitoring orthostatic BP will follow. Subjective Subjective: He still feels dizzy when he gets up. Objective Last 24 Hrs of Vital Signs/I&O Vital Signs Date Time Temp Pulse Resp B/P B/P Pulse O2 O2 Flow FiO2 Mean Ox Delivery Rate 12/05 1435 97.2 83 20 109/58 97 12/05 0800 Room Air 12/05 0620 98.4 67 18 102/66 98 Room Air 12/04 2155 98.3 55 18 107/62 93 Intake & Output 12/05 1600 12/05 0800 12/05 0000 Intake Total 360 200 940 Output Total Balance 360 200 940 Intake, Oral 360 200 940 Results Pertinent Lab/Paddy Results: Laboratory Tests 12/05 Chemistry Sodium (137 - 145 mmol/L) 137 Potassium (3.5 - 5.1 mmol/L) 4.4 Chloride (98 - 107 mmol/L) 102 Carbon Dioxide (22 - 30 mmol/L) 27 Anion Gap (5 - 16) 8 BUN (9 - 20 mg/dL) 12 Creatinine (0.7 - 1.2 mg/dL) 1.1 Estimated GFR (>60 ml/min) > 60 BUN/Creatinine Ratio (7 - 25 %) 10.9 Renin Pending Aldosterone Pending ACTH Stimulation Pending Hematology CBC w Diff NO MAN DIFF REQ WBC (4.8 - 10.8 /CUMM) 7.6 RBC (4.70 - 6.10 /CUMM) 4.23 L Hgb (14.0 - 18.0 G/DL) 12.8 L Hct (42 - 52 %) 36.8 L MCV (80.0 - 94.0 FL) 87.1 MCH (27.0 - 31.0 PG) 30.4 MCHC (33.0 - 37.0 G/DL) 34.9 RDW (11.5 - 14.5 %) 13.0 Plt Count (130 - 400 /CUMM) 249 MPV (7.4 - 10.4 FL) 9.3 Gran % (42.2 - 75.2 %) 55.9 Lymphocytes % (20.5 - 51.1 %) 34.7 Monocytes % (1.7 - 9.3 %) 7.9 Eosinophils % (0 - 5 %) 1.0 Basophils % (0.0 - 2.0 %) 0.5 Absolute Granulocytes (1.4 - 6.5 /CUMM) 4.2 Absolute Lymphocytes (1.2 - 3.4 /CUMM) 2.6 Absolute Monocytes (0.10 - 0.60 /CUMM) 0.6 Absolute Eosinophils (0.0 - 0.7 /CUMM) 0.1 Absolute Basophils (0.0 - 0.2 /CUMM) 0
--- NOTE | 2017-12-05 20:44 | Cons- Cardiology ---
General Information and HPI Consulting Request Date of Consult: 12/05/17 Requested By: Ashwin Taylor MD Reason for Consult: Orthostatic hypotension History of Present Illness: The patient is a 52-year-old male with history of hyperlipidemia and Raynaud's syndrome who presents with fatigue and malaise associated with upper respiratory infection over the past 2 weeks. 2 weeks ago he developed a fever of 103 with extreme fatigue. He had a sore throat and myalgias at that time. Rapid flu test and strep tests were noted to be negative. He was noted to be hypotensive, and an echocardiogram was performed which she believes was unremarkable, however the result is not currently available. He was noted to have decreased appetite with poor p.o. intake. He was sent to the emergency department where he was found to have significant orthostatic hypotension. He has been in the hospital for 4 days. He has been treated with IV fluid, and hydrocortisone therapy was initiated for possible adrenal insufficiency. He has continued to be orthostatic, and Florinef has been ordered. Allergies/Medications Allergies: Coded Allergies: Penicillins (UPSET STOMACH 12/01/17) Home Med List: Doxycycline Hyclate 100 MG TABLET 1 TAB PO BID lyme Ondansetron (Zofran Odt) 4 MG TAB.RAPDIS 1 TAB SL TID PRN nausea Current Medications: Current Medications Sig/Brooks Start time Last Medication Dose Route Stop Time Status Admin Acetaminophen 500 MG Q6P PRN 12/02 1945 AC 12/04 PO 1624 Docusate Sodium 100 MG DAILY NEEDED PRN 12/05 1000 AC PO Fludrocortisone 100 MCG DAILY 12/05 1321 AC 12/05 Acetate PO 1429 Heparin Sodium 5,000 UNIT Q8 12/01 2200 AC 12/05 (Porcine) SC 1305 Hydrocortisone 25 MG BID 12/04 1130 AC 12/05 Sodium Succinate IV 0903 Ondansetron HCl 4 MG Q6P PRN 12/01 2245 AC 12/04 IV 0553 Patient Medication 1 ED ONE ONE 12/05 1500 DC Teaching ED 12/05 1501 Polyethylene Glycol 17 GM DAILY 12/05 0958 AC 12/05 PO 1306 Senna/Docusate Sodium 2 TAB DAILY NEEDED PRN 12/05 1000 AC PO Review of Systems Review of Systems: No rash. No tremor. No hemoptysis. No hematemesis. All other systems were reviewed, and were noted to be negative. 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 Home Services at Home: None Smoking Status: Former Smoker ETOH Use: occasional use Illicit Drug Use: denies illicit drug use Exam & Diagnostic Data Vital Signs and I&O Vital Signs Date Time Temp Pulse Resp B/P B/P Pulse O2 O2 Flow FiO2 Mean Ox Delivery Rate 12/05 1435 97.2 83 20 109/58 97 12/05 0800 Room Air 12/05 0620 98.4 67 18 102/66 98 Room Air 12/04 2155 98.3 55 18 107/62 93 Intake & Output 12/05 1600 12/05 0800 12/05 0000 12/04 1600 12/04 0800 12/04 0000 Intake Total 360 200 940 500 200 300 Output Total Balance 360 200 940 500 200 300 Intake, Oral 360 200 940 500 200 300 Physical Exam: Gen: The patient is in no acute distress HEENT: Normal nose, ears, and oropharynx. Pupils equal bilaterally. Conjunctiva normal. Neck: Supple with no JVD, no masses, and no thyromegaly Lungs: Clear to auscultation with normal respiratory effort Heart: RRR, S1, S2, no murmurs. No peripheral edema, 2+ pulses in the lower extremities bilaterally Abdomen: Soft, nontender, no masses. No hepatomegaly. No splenomegaly Extremities: No clubbing or cyanosis. Normal muscle strength in the upper and lower extremities Skin: Normal skin turgor with no skin ulcers or lesions noted. Neuro: Cranial nerves intact. Sensation intact Psych: Alert and oriented x 3 with appropriate affect Labs/Paddy Results: Laboratory Tests 12/05 Chemistry Sodium (137 - 145 mmol/L) 137 138 Potassium (3.5 - 5.1 mmol/L) 4.4 3.6 Chloride (98 - 107 mmol/L) 102 106 Carbon Dioxide (22 - 30 mmol/L) 27 22 Anion Gap (5 - 16) 8 10 BUN (9 - 20 mg/dL) 12 11 Creatinine (0.7 - 1.2 mg/dL) 1.1 1.0 Estimated GFR (>60 ml/min) > 60 > 60 BUN/Creatinine Ratio (7 - 25 %) 10.9 11.0 Renin Pending Aldosterone Pending Cortisol AM Sample (4.46 - 22.7 ug/dL) 9.8 ACTH Stimulation Pending Hematology CBC w Diff NO MAN DIFF REQ WBC (4.8 - 10.8 /CUMM) 7.6 RBC (4.70 - 6.10 /CUMM) 4.23 L Hgb (14.0 - 18.0 G/DL) 12.8 L Hct (42 - 52 %) 36.8 L MCV (80.0 - 94.0 FL) 87.1 MCH (27.0 - 31.0 PG) 30.4 MCHC (33.0 - 37.0 G/DL) 34.9 RDW (11.5 - 14.5 %) 13.0 Plt Count (130 - 400 /CUMM) 249 MPV (7.4 - 10.4 FL) 9.3 Gran % (42.2 - 75.2 %) 55.9 Lymphocytes % (20.5 - 51.1 %) 34.7 Monocytes % (1.7 - 9.3 %) 7.9 Eosinophils % (0 - 5 %) 1.0 Basophils % (0.0 - 2.0 %) 0.5 Absolute Granulocytes (1.4 - 6.5 /CUMM) 4.2 Absolute Lymphocytes (1.2 - 3.4 /CUMM) 2.6 Absolute Monocytes (0.10 - 0.60 /CUMM) 0.6 Absolute Eosinophils (0.0 - 0.7 /CUMM) 0.1 Absolute Basophils (0.0 - 0.2 /CUMM) 0 Serology Lyme Disease Antibody (RATIO) 0.54 Diagnostic Data EKG Results EKG tracings independently reviewed, and reveals normal sinus rhythm at 52 with borderline inferior Q wave CXR Results Negative Other Results CTA chest: 1. No pulmonary embolism. 2. No evidence of pneumonia or acute pulmonary pathology. 3. Scattered coronary artery calcification. CT scan of the abdomen and pelvis: CTA chest: 1. No pulmonary embolism. 2. No evidence of pneumonia or acute pulmonary pathology. 3. Scattered coronary artery calcification. Assessment/Plan Assessment/Plan The patient is a 52-year-old male with history of hyperlipidemia and rainouts syndrome presenting after an upper respiratory infection with orthostatic hypotension. He remains orthostatic after IV fluid. Hydrocortisone therapy has been initiated for possible adrenal insufficiency. Florinef has been added for orthostatic hypotension. Recommendations: * Will obtain a copy of the echo report from his echocardiogram [address] Lopez's office * Continue Florinef for orthostatic hypotension * Repeat orthostatics in the morning Consult Acknowledgment - Thank you for your consult request.
[2017-12-05 22:30] VITALS: BP 131/71
[2017-12-06 04:00] VITALS: BP 117/57
[2017-12-06 05:20] VITALS: BP 117/57
--- NOTE | 2017-12-06 07:36 | PN- Housestaff ---
Norma HUANG,Ehsan 12/06/17 0734: Subjective Follow-up For: Orthostatic hypotension Fatigue Low cortisol level Subjective: Patient seen and examined today. Patient reports that he feels much better today however continues to feel fatigued after walking and showering. Patient is requesting that he be transferred to [facility] this morning. Reports occasional lightheadedness upon standing. No acute events overnight. Review of Systems Constitutional: Reports: see HPI. Objective Last 24 Hrs of Vital Signs/I&O Vital Signs Date Time Temp Pulse Resp B/P B/P Pulse O2 O2 Flow FiO2 Mean Ox Delivery Rate 12/06 0520 97.6 53 18 117/57 97 Room Air 12/06 0400 53 117/57 12/05 2230 58 131/71 12/05 2230 97.4 58 16 131/71 98 Room Air 12/05 1435 97.2 83 20 109/58 97 12/05 0800 Room Air Intake & Output 12/06 0800 12/06 0000 12/05 1600 Intake Total 800 480 360 Output Total Balance 800 480 360 Intake, Oral 800 480 360 Physical Exam General Appearance: Alert, Cooperative, No Acute Distress, orthostatic positive Skin Temp/Moisture Exam: Warm/Dry Cardiovascular: Regular Rate, Normal S1, Normal S2 Lungs: Clear to Auscultation, Normal Air Movement Abdomen: Normal Bowel Sounds, Soft, No Tenderness Neurological: Normal Gait, Normal Speech, Strength at 5/5 X4 Ext, Normal Tone, Sensation Intact, Cranial Nerves 3-12 NL Extremities: No Clubbing, No Cyanosis, No Edema, Normal Pulses, No Tenderness/ Swelling Current Medications: Current Medications Sig/Brooks Start time Last Medication Dose Route Stop Time Status Admin Acetaminophen 500 MG Q6P PRN 12/02 1945 AC 12/04 PO 1624 Docusate Sodium 100 MG DAILY NEEDED PRN 12/05 1000 AC PO Fludrocortisone 100 MCG DAILY 12/05 1321 12/05 Acetate PO 1429 Heparin Sodium 5,000 UNIT Q8 12/01 2200 12/06 (Porcine) SC 0448 Hydrocortisone 25 MG BID 12/04 1130 12/05 Sodium Succinate IV 2055 Ondansetron HCl 4 MG Q6P PRN 12/01 2245 12/04 IV 0553 Patient Medication 1 ED ONE ONE 12/05 1500 DC Teaching ED 12/05 1501 Polyethylene Glycol 17 GM DAILY 12/05 0958 AC 12/05 PO 1306 Senna/Docusate Sodium 2 TAB DAILY NEEDED PRN 12/05 1000 AC PO Last 24 Hrs of Lab/Paddy Results Last 24 Hrs of Labs/Mics: Laboratory Tests 12/06/17 0837: Anion Gap 11, Estimated GFR > 60, BUN/Creatinine Ratio 12.0 Assessment/Plan Assessment: Patient is a 52-year-old male with past medical history of hyperlipidemia, Raynaud's syndrome, strong family history of colon cancer presenting with fatigue, malaise, nausea/vomiting, orthostatic hypotension, recently seen in the emergency department on November 27 and treated for Lyme disease sent home with doxycycline. 1. Orthostatic hypotension 2. Anemia 3. Fatigue 4. Chronic conditions: HLD, Raynauds Orthostatic hypotension: Patient today continues to feel fatigued and occasionally lightheaded and orthostatic positive however improvement with steroids. The etiology of patient' s orthostatic hypotension remains unclear. It appears that the adrenal glands are properly responding as patient had a normal ACTH stim test with a response in his cortisol level to 20. Patient was seen by endocrinology. Patient has no overt signs of pituitary mass large enough to cause visual defects or headaches. 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 Other causes of orthostatic hypotension include infectious etiology due to possible lyme disease, medications (however not currently on any antihypertensives or medications that affect the autonomic nervous system), other causes may include dysfunction of the renin-aldosterone angiotensin system however patient's electrolytes remain wnl. Patient may have autonomic dysfunction and would benefit from further cardiac work up. Patient also has a family history of rheumatoid arthritis and has raynaud's and has a rash on his face diagnosed by his soil science professor as hyperplasia. Raynaud's has been associated with pituitary dysfunction. * IV Solu-Cortef 25mg BID continued * Continue Florinef. * Endocrinology consulted, appreciate recommendations * Follow up renin and aldosterone * Repeat orthostatic vital signs q6h * Cardiology consult * As patient is improving, he feels that he would benefit from staying one more and being discharged home instead of being transferred to [facility] Anemia: H/H stable, Guiaic BMs, iron studies wnl, CT abdomen and pelvis shows mucosal wall thickening of the splenic flexure, patient has significant family history of colon cancer, reportedly negative colonoscopy 3 years ago. Continue to monitor H/H Continue to guiac all stool Fatigue: Lyme IGGs not diagnostic Repeat Lyme titers negative DVT ppx-heparin subcutaneous Regular diet Full code Problem List: 1. Orthostatic hypotension 2. Fatigue Pain Ratin Pain Location: n/a Pain Goal: Remain pain free Pain Plan: prn Tomorrow's Labs & Rationales: erik Taylor MD,Ashwin 12/06/17 1223: Attending MD Review Statement Attending Statement Attending MD Statement: examined this patient, discuss w/resident/PA/STAINLESS STEEL FINISHER, agreed w/resident/PA/STAINLESS STEEL FINISHER, discussed with family, reviewed EMR data (avail), discussed with nursing, discussed with case mgmt, amended to note Attending Assessment/Plan: Patient seen and examined. He reports feeling better. He however continues to complain of malaise reported significant fatigue after minor activities such as taking a shower. He does admit that the dizziness has improved significantly compared to presentation. She continues to have positive orthostatic blood pressure changes. MRI of the brain done yesterday shows a small in size pituitary gland. According to the reading radiologist's findings are consistent with partial empty sella. Patient has been receiving dexamethasone and was started on Florinef yesterday. The endocrinology service as recommended consideration on midodrine however due to risk of bradycardia we will avoid this medication for now. At this point patient no longer wants remaining [facility]. He wants evaluation by another transport truck driver at [facility]. I did discuss with him current findings and treatment plan. I did explain this to the patient in the presence of his . Case was also discussed further with transport truck driver Dr. flowers. Patient however wants to be transferred to [facility]. Case was presented to the hospitalist service and he was accepted by Dr. Leland Mai. He will be transferred later on today.
--- NOTE | 2017-12-06 10:39 | PN- Endocrinology ---
Assessment/Plan Endoscopy Assessment: 52-year-old male with a past medical history significant for hyperlipidemia, Raynaud's disease, strong family history of colon cancer who came in with the chief complaint of fatigue, malaise, nausea/vomiting x 2 weeks, orthostatic hypotension following upper respiratory illness. He started having erectile dysfunction approximately 6 months ago. He was on LR 150 ml/hour. Random cortisol was 11.2. The am cortisol from 2017 was 9.8. But he was still having diszziness.ACTH stimulation test was done and cortisol level after he received ACTH was up to 20.6 which is normal. However, he stated that he did feel better for several hours after he did ACTH stimulation test. His TSH was 1.19, free T4 1.32 and TT3 1.24; am testosterone was 328, FSH 1.5, LH 1.5 and prolactin was 10.7. On 12/04/2017. am cortisol 9.8, ACTH is pending, sodium 138, K 3.6, aldosterone and PRA are pending. He was put on stress dose of Hydrocortisone 25 mg iv twice a day on 12/04/2017. From energy stand point, he feels better. On 11/27/2017, Lyme testing showed positive bands of 41 KD-IgG and 23 KD-IgM. Repeat Lyme test on 12/04/2017-- negative. MRI of pituitary showed his pituitary gland was small in size with maximal height measuring 2.5 mm which is more than 2 SD below the mean. I reviewed the imagings with Dr. Pina and the findings were consistent with partial empty sella. Patient was put on Florinef 0.1 mg daily on 12/05/2017. On 12/06/2017 am, overall he feels better with higher BP. But he still has orthostatic hypotension-- BP HR laying 117/57 53 sitting 104/58 82 standing 85/46 97 Plan: 1. continue hydrocortisone 25 mg iv twice a day for now; 2. continue Florinef 0.1 mg daily; 3. consider adding midodrine; however, please check it with Dr. Barrera as one of the possible side effects of midodrine is bradycardia; 4. continue monitoring orthostatic BP. will follow. Subjective Subjective: Patient feels frustrated because he still has orthosdtatic hypotension. Objective Last 24 Hrs of Vital Signs/I&O Vital Signs Date Time Temp Pulse Resp B/P B/P Pulse O2 O2 Flow FiO2 Mean Ox Delivery Rate 12/06 0520 97.6 53 18 117/57 97 Room Air 12/06 0400 53 117/57 12/05 2230 58 131/71 12/05 2230 97.4 58 16 131/71 98 Room Air 12/05 1435 97.2 83 20 109/58 97 Intake & Output 12/06 1600 12/06 0800 12/06 0000 Intake Total 800 480 Output Total Balance 800 480 Intake, Oral 800 480 Results Pertinent Lab/Paddy Results: Laboratory Tests 12/06 0837 Chemistry Sodium (137 - 145 mmol/L) 138 Potassium (3.5 - 5.1 mmol/L) 4.0 Chloride (98 - 107 mmol/L) 103 Carbon Dioxide (22 - 30 mmol/L) 24 Anion Gap (5 - 16) 11 BUN (9 - 20 mg/dL) 12 Creatinine (0.7 - 1.2 mg/dL) 1.0 Estimated GFR (>60 ml/min) > 60 BUN/Creatinine Ratio (7 - 25 %) 12.0
--- NOTE | 2017-12-06 12:37 | PN- Cardiology ---
Subjective Subjective: The patient complained of fatigue and lightheadedness this morning, and he was noted to be significantly orthostatic. He reports feeling much better this afternoon. He is now able to ambulate and climb stairs without significant symptoms. Objective Vital Signs and I&Os Vital Signs Date Time Temp Pulse Resp B/P B/P Pulse O2 O2 Flow FiO2 Mean Ox Delivery Rate 12/06 0520 97.6 53 18 117/57 97 Room Air 12/06 0400 53 117/57 12/05 2230 58 131/71 12/05 2230 97.4 58 16 131/71 98 Room Air 12/05 1435 97.2 83 20 109/58 97 Intake & Output 12/06 1600 12/06 0800 12/06 0000 12/05 1600 12/05 0800 12/05 0000 Intake Total 800 480 360 200 940 Output Total Balance 800 480 360 200 940 Intake, Oral 800 480 360 200 940 Physical Exam: Gen: The patient is in no acute distress HEENT: Normal nose, ears, and oropharynx. Pupils equal bilaterally. Conjunctiva normal. Neck: Supple with no JVD, no masses, and no thyromegaly Lungs: Clear to auscultation with normal respiratory effort Heart: RRR, S1, S2, no murmurs. No peripheral edema, 2+ pulses in the lower extremities bilaterally Abdomen: Soft, nontender, no masses. No hepatomegaly. No splenomegaly Extremities: No clubbing or cyanosis. Normal muscle strength in the upper and lower extremities Skin: Normal skin turgor with no skin ulcers or lesions noted. Neuro: Cranial nerves intact. Sensation intact Psych: Alert and oriented x 3 with appropriate affect Current Medications: Current Medications Sig/Brooks Start time Last Medication Dose Route Stop Time Status Admin Acetaminophen 500 MG Q6P PRN 12/02 1945 AC 12/04 PO 1624 Docusate Sodium 100 MG DAILY NEEDED PRN 12/05 1000 AC PO Fludrocortisone 100 MCG DAILY 12/05 1321 AC 12/06 Acetate PO 0933 Heparin Sodium 5,000 UNIT Q8 12/01 2200 AC 12/06 (Porcine) SC 0448 Hydrocortisone 25 MG BID 12/04 1130 AC 12/06 Sodium Succinate IV 0933 Ondansetron HCl 4 MG Q6P PRN 12/01 2245 AC 12/04 IV 0553 Patient Medication 1 ED ONE ONE 12/05 1500 DC Teaching ED 12/05 1501 Polyethylene Glycol 17 GM DAILY 12/05 0958 AC 12/06 PO 0933 Senna/Docusate Sodium 2 TAB DAILY NEEDED PRN 12/05 1000 AC PO Results Last 48 Hrs of Labs/Mics: Laboratory Tests 12/06/17 0837: Anion Gap 11, Estimated GFR > 60, BUN/Creatinine Ratio 12.0 12/05/17 0625: Anion Gap 8, Estimated GFR > 60, BUN/Creatinine Ratio 10.9, CBC w Diff NO MAN DIFF REQ, RBC 4.23 L, MCV 87.1, MCH 30.4, MCHC 34.9, RDW 13.0, MPV 9.3, Gran % 55.9, Lymphocytes % 34.7, Monocytes % 7.9, Eosinophils % 1.0, Basophils % 0.5, Absolute Granulocytes 4.2, Absolute Lymphocytes 2.6, Absolute Monocytes 0.6, Absolute Eosinophils 0.1, Absolute Basophils 0 12/04/172007: Renin Pending, Aldosterone Pending, ACTH Stimulation Pending Recent Imaging Studies: Recent echocardiogram IN Dr. Lopez's office showed normal left ventricular function with mild mitral regurgitation and mild mitral annular calcification. The echocardiogram was otherwise normal Assessment/Plan Assessment/Plan Assessment: 1. Possible adrenal insufficiency 2. Orthostatic hypotension Plan: * Would restart IV fluids, normal saline at 125 cc/hr to help improve orthostatic hypotension in conjunction with Florinef * Recheck orthostatics in the morning * Continue ambulation * I recommend possible discharge tomorrow if asymptomatic. * It can take several days to a week before the full effect of Florinef is seen. I recommend increasing the dose of the Florinef once a week as needed as an outpatient until orthostatic hypotension and symptoms are controlled Continue telemetry? Not applicable
[2017-12-06] MEDS ORDERED: FLUDROCORTISON0.1 M1 PO (13:15)
[2017-12-06] MEDS ORDERED: SOLU-CORTE100 MG/2 M IV (13:16)
--- NOTE | 2017-12-06 13:19 | Patient Discharge Instructions ---
Discharge Instructions General Discharge Information You were seen/treated for: Adrenal Insufficiency Partial Empty Sella Syndrome Bradycardia Special Instructions: Follow up with your pcp within 1 week of discharge Take medications as prescribed please follow up qith your genetic counselor Dr Glynn within one week of discharge. Acute Coronary Syndrome Inclusion Criteria At DC or during hospital stay patient has or had the following: ACS DIAGNOSIS No Discharge Core Measures Meds if any: Prescribed or Continued at Discharge Meds if any: NOT Prescribed or Continued at Discharge Congestive Heart Failure Inclusion Criteria At DC or during hospital stay patient has or had the following: CHF DIAGNOSIS No Discharge Core Measures Meds if any: Prescribed or Continued at Discharge Meds if any: NOT Prescribed or Continued at Discharge Cerebrovascular accident Inclusion Criteria At DC or during hospital stay patient has or had the following: CVA/TIA Diagnosis No Discharge Core Measures Meds if any: Prescribed or Continued at Discharge Meds if any: NOT Prescribed or Continued at Discharge Venous thromboembolism Inclusion Criteria VTE Diagnosis No VTE Type NONE VTE Confirmed by (Test) NONE Discharge Core Measures - Per Current guidelines, there needs to be overlap - treatment for the first 5 days of Warfarin therapy. - If discharged on Warfarin prior to 5 days of - overlap therapy, the patient will need to be - assessed for post discharge needs including - *Post discharge parental anticoagulation - *Warfarin and/or parental anticoagulation education - *Follow up date to check INR post discharge At least 5 days overlap therapy as Inpatient No Meds if any: Prescribed or Continued at Discharge Note: Overlap Therapy is Warfarin and Anticoagulant Meds if any: NOT Prescribed or Continued at Discharge
[2017-12-06 14:01] VITALS: BP 112/60
[2017-12-06 21:00] VITALS: BP 112/58
[2017-12-06 22:07] VITALS: BP 112/58
[2017-12-07 06:00] VITALS: BP 102/60
--- NOTE | 2017-12-07 07:35 | PN- Housestaff ---
Norma HUANG,Ehsan 12/07/17 0735: Subjective Follow-up For: Orthostatic hypotension Fatigue Low cortisol level Sinus bradycardia Subjective: Patient seen and examined today. Patient reports he feels better today however did not sleep well today. Patient reports he felt slightly lightheaded when standing for a prolonged period of time. No acute events overnight. Review of Systems Constitutional: Reports: see HPI. Objective Last 24 Hrs of Vital Signs/I&O Vital Signs Date Time Temp Pulse Resp B/P B/P Pulse O2 O2 Flow FiO2 Mean Ox Delivery Rate 12/07 0600 67 102/60 12/07 0600 98.3 67 20 102/60 98 Room Air 12/06 2207 98.4 63 18 112/58 97 Room Air 12/06 2100 63 112/58 12/06 1401 98.0 57 18 112/60 95 Room Air 12/06 0800 Room Air Intake & Output 12/07 0800 12/07 0000 12/06 1600 Intake Total 480 240 480 Output Total Balance 480 240 480 Intake, Oral 480 240 480 Patient 220 lb Weight Physical Exam General Appearance: Alert, Oriented X3, Cooperative, No Acute Distress Skin Temp/Moisture Exam: Warm/Dry HEENT: Atraumatic, PERRLA, EOMI, Mucous Membr. moist/pink Cardiovascular: Regular Rate, Normal S1, Normal S2, No Murmurs Lungs: Clear to Auscultation, Normal Air Movement Abdomen: Normal Bowel Sounds, Soft, No Tenderness Neurological: Normal Gait, Normal Speech, Strength at 5/5 X4 Ext, Normal Tone, Sensation Intact, Cranial Nerves 3-12 NL Extremities: No Clubbing, No Cyanosis, No Edema, Normal Pulses, No Tenderness/ Swelling Current Medications: Current Medications Sig/Brooks Start time Last Medication Dose Route Stop Time Status Admin Acetaminophen 500 MG Q6P PRN 12/02 1945 AC 12/04 PO 1624 Docusate Sodium 100 MG DAILY NEEDED PRN 12/05 1000 AC 12/06 PO 203 Fludrocortisone 100 MCG ONCE ONE 12/06 1700 DC 12/06 Acetate PO 12/06 170 1708 Fludrocortisone 100 MCG DAILY 12/05 1321 AC 12/06 Acetate PO 0933 Heparin Sodium 5,000 UNIT Q8 12/01 2200 AC 12/07 (Porcine) SC 0535 Hydrocortisone 25 MG BID 12/04 1130 AC 06/19 Sodium Succinate IV 2030 Melatonin 5 MG AT BEDTIME 12/07 0030 AC 12/07 PO 0023 Ondansetron HCl 4 MG Q6P PRN 12/01 2245 AC 12/04 IV 0553 Polyethylene Glycol 17 GM DAILY 12/05 0958 AC 12/06 PO 0933 Senna/Docusate Sodium 2 TAB DAILY NEEDED PRN 12/05 1000 AC 12/06 PO 2031 Last 24 Hrs of Lab/Paddy Results Last 24 Hrs of Labs/Mics: Laboratory Tests 12/07/17 0625: Sodium Pending, Potassium Pending, Chloride Pending, Carbon Dioxide Pending, Anion Gap Pending, BUN Pending, Creatinine Pending, BUN/Creatinine Ratio Pending 12/06/17 0837: Anion Gap 11, Estimated GFR > 60, BUN/Creatinine Ratio 12.0 Assessment/Plan Assessment: Patient is a 52-year-old male with past medical history of hyperlipidemia, Raynaud's syndrome, strong family history of colon cancer presenting with fatigue, malaise, nausea/vomiting, orthostatic hypotension, recently seen in the emergency department on November 27 and treated for Lyme disease sent home with doxycycline. 1. Orthostatic hypotension 2. Anemia 3. Fatigue 4. Chronic conditions: HLD, Raynauds Orthostatic hypotension: Patient today continues to feel fatigued and occasionally lightheaded and orthostatic positive however improvement with steroids. The etiology of patient' s orthostatic hypotension remains unclear. It appears that the adrenal glands are properly responding as patient had a normal ACTH stim test with a response in his cortisol level to 20. Patient was seen by endocrinology. Patient has no overt signs of pituitary mass large enough to cause visual defects or headaches. 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 Other causes of orthostatic hypotension include infectious etiology due to possible lyme disease, medications (however not currently on any antihypertensives or medications that affect the autonomic nervous system), other causes may include dysfunction of the renin-aldosterone angiotensin system however patient's electrolytes remain wnl. Patient may have autonomic dysfunction and would benefit from further cardiac work up. Patient also has a family history of rheumatoid arthritis and has raynaud's and has a rash on his face diagnosed by his stone polisher machine as hyperplasia. Raynaud's has been associated with pituitary dysfunction. * Patient will be discharged on Hydrocortisone 20mg in AM and 10mg at 4PM daily * Patient to continue taking Florinef 0.1mg daily * Follow up with Dr. Glynn. Patient given a referal to a [place] teacher theater arts for second opinion if he chooses * Follow up renin and aldosterone outpatient with endocrinology Anemia: H/H stable, Guiaic BMs, iron studies wnl, CT abdomen and pelvis shows mucosal wall thickening of the splenic flexure, patient has significant family history of colon cancer, reportedly negative colonoscopy 3 years ago. Stable. Fatigue: Lyme IGGs not diagnostic Repeat Lyme titers negative DVT ppx-heparin subcutaneous Regular diet Full code Dispo: discharge home today Problem List: 1. Orthostatic hypotension 2. Fatigue Pain Ratin Pain Location: n/a Pain Goal: Remain pain free Pain Plan: prn Tomorrow's Labs & Rationales: none - discharge home today Claudia HUANG,Ashwin 12/07/17 1148: Attending MD Review Statement Attending Statement Attending MD Statement: examined this patient, discuss w/resident/PA/SENIOR INFRASTRUCTURE ARCHITECT, agreed w/resident/PA/SENIOR INFRASTRUCTURE ARCHITECT, reviewed EMR data (avail), discussed with nursing, discussed with case mgmt, amended to note Attending Assessment/Plan: patient seen and examined. Reports feeling better this morning. Reports less dizziness. He is able to ambulate freely around the unit with no complaints. He feels ready for discharge today. Orthostatic vitals done this morning noted. Numbers appear to be improving compared to previous. She is medically stable to be discharged today. He will continue hydrocortisone and Florinef. He will be followed up by the endocrinology service for titration of medications as needed. Is also being discharged on the PPI. Cardiology follow-up also appreciated
[2017-12-07] MEDS ORDERED: CORTEF10 M1 PO ×2 (08:26→10:04)
[2017-12-07] MEDS ORDERED: FLUDROCORTISON0.1 M1 PO (10:04)
[2017-12-07] MEDS ORDERED: PROTONIX40 M3 PO (10:04)
--- NOTE | 2017-12-07 11:27 | PN- Cardiology ---
Subjective Subjective: Doing okay. Feeling somewhat better. Still fatigued. Objective Vital Signs and I&Os Vital Signs Date Time Temp Pulse Resp B/P B/P Pulse O2 O2 Flow FiO2 Mean Ox Delivery Rate 12/07 0800 Room Air 12/07 0600 67 102/60 12/07 0600 98.3 67 20 102/60 98 Room Air 12/06 2207 98.4 63 18 112/58 97 Room Air 12/06 2100 63 112/58 12/06 1401 98.0 57 18 112/60 95 Room Air Intake & Output 12/07 1600 12/07 0800 12/07 0000 12/06 1600 12/06 0800 12/06 0000 Intake Total 480 240 480 800 480 Output Total Balance 480 240 480 800 480 Intake, Oral 480 240 480 800 480 Patient 220 lb Weight Current Medications: Current Medications Sig/Brooks Start time Last Medication Dose Route Stop Time Status Admin Acetaminophen 500 MG Q6P PRN 12/02 1945 DCD 12/04 PO 1624 Docusate Sodium 100 MG DAILY NEEDED PRN 12/05 1000 DCD 12/06 PO 203 Fludrocortisone 100 MCG ONCE ONE 12/06 1700 DC 12/06 Acetate PO 12/06 1701 1708 Fludrocortisone 100 MCG DAILY 12/05 1321 DCD 12/07 Acetate PO 1000 Heparin Sodium 5,000 UNIT Q8 12/01 2200 DCD 12/07 (Porcine) SC 0535 Hydrocortisone 25 MG BID 12/04 1130 DCD 12/07 Sodium Succinate IV 1018 Melatonin 5 MG AT BEDTIME 12/07 0030 DCD 12/07 PO 0023 Ondansetron HCl 4 MG Q6P PRN 12/01 2245 DCD 12/04 IV 0553 Polyethylene Glycol 17 GM DAILY 12/05 0958 DCD 12/07 PO 1000 Senna/Docusate Sodium 2 TAB DAILY NEEDED PRN 12/05 1000 DCD 12/06 PO 2031 Results Last 48 Hrs of Labs/Mics: Laboratory Tests 12/07/17 0625: Anion Gap 11, Estimated GFR > 60, BUN/Creatinine Ratio 11.0 12/06/17 0837: Anion Gap 11, Estimated GFR > 60, BUN/Creatinine Ratio 12.0 Assessment/Plan Assessment/Plan Assessment: 1. Possible adrenal insufficiency 2. Orthostatic hypotension Plan: * Out of bed as tolerated * Repeat orthostatics noted * Continue ambulation * The patient is awaiting discharge for later today. Outpatient follow-up arranged. * As noted by Dr. Barrera, it can take several days to a week before the full effect of Florinef is seen. I recommend increasing the dose of the Florinef once a week as needed as an outpatient until orthostatic hypotension and symptoms are controlled. At the present time, it would be nice to avoid adding midodrine if possible. Continue telemetry? No
--- NOTE | 2017-12-07 13:19 | PN- Endocrinology ---
Assessment/Plan Endoscopy Assessment: 52-year-old male with a past medical history significant for hyperlipidemia, Raynaud's disease, strong family history of colon cancer who came in with the chief complaint of fatigue, malaise, nausea/vomiting x 2 weeks, orthostatic hypotension following upper respiratory illness. He started having erectile dysfunction approximately 6 months ago. He was on LR 150 ml/hour. Random cortisol was 11.2. The am cortisol from 2017 was 9.8. But he was still having diszziness.ACTH stimulation test was done and cortisol level after he received ACTH was up to 20.6 which is normal. However, he stated that he did feel better for several hours after he did ACTH stimulation test. His TSH was 1.19, free T4 1.32 and TT3 1.24; am testosterone was 328, FSH 1.5, LH 1.5 and prolactin was 10.7. On 12/04/2017. am cortisol 9.8, ACTH is pending, sodium 138, K 3.6, aldosterone and PRA are pending. He was put on stress dose of Hydrocortisone 25 mg iv twice a day on 12/04/2017. From energy stand point, he feels better. On 11/27/2017, Lyme testing showed positive bands of 41 KD-IgG and 23 KD-IgM. Repeat Lyme test on 12/04/2017-- negative. MRI of pituitary showed his pituitary gland was small in size with maximal height measuring 2.5 mm which is more than 2 SD below the mean. I reviewed the imagings with Dr. Pina and the findings were consistent with partial empty sella. Patient was put on Florinef 0.1 mg daily on 12/05/2017. On 12/06/2017 am, overall he feels better with higher BP. But he still has orthostatic hypotension-- BP HR laying 117/57 53 sitting 104/58 82 standing 85/46 97 On 12/07/2017, he feels better, he feels less dizzy when he walks. BP HR laying 102/60 67 sitting 102/63 82 standing 89/55 93 As per team, patient is going to be discharged home today. Plan: 1. hydrocortisone 20mg po at 8 am and 10 mg at 4 pm; 2. continue Florinef 0.1 mg daily; 3. continue monitoring orthostatic BP at home; 4. f/u in office after discharge; 5. he would like to obtain a second opinion from [facility]. I have recommended Dr. Haddad. 6. continue monitoring other pituitary hormones as outpatient 7. I have mentioned to patient that he will need stress dose of steroid if he undergo major procedure or he is sick in the future. Subjective Subjective: He feels better this morning. Objective Last 24 Hrs of Vital Signs/I&O Vital Signs Date Time Temp Pulse Resp B/P B/P Pulse O2 O2 Flow FiO2 Mean Ox Delivery Rate 12/07 0800 Room Air 12/07 0600 67 102/60 12/07 0600 98.3 67 20 102/60 98 Room Air 12/06 2207 98.4 63 18 112/58 97 Room Air 12/06 2100 63 112/58 12/06 1401 98.0 57 18 112/60 95 Room Air Intake & Output 12/07 1600 12/07 0800 12/07 0000 Intake Total 480 240 Output Total Balance 480 240 Intake, Oral 480 240 Results Pertinent Lab/Paddy Results: Laboratory Tests 12/07 0625 Chemistry Sodium (137 - 145 mmol/L) 138 Potassium (3.5 - 5.1 mmol/L) 4.2 Chloride (98 - 107 mmol/L) 103 Carbon Dioxide (22 - 30 mmol/L) 24 Anion Gap (5 - 16) 11 BUN (9 - 20 mg/dL) 11 Creatinine (0.7 - 1.2 mg/dL) 1.0 Estimated GFR (>60 ml/min) > 60 BUN/Creatinine Ratio (7 - 25 %) 11.0
--- NOTE | 2017-12-09 15:00 | Discharge Summary ---
Visit Information Visit Dates Admission Date: 12/01/17 Discharge Date: 12/07/17 Hospital Course Course Attending Physician: Ashwin Taylor MD Primary Care Physician: Jerrica HUANG,Jhony Maher Hospital Course: Patient is a 52-year-old male with past medical history of hyperlipidemia, Raynaud's syndrome, strong family history of colon cancer presenting with fatigue, malaise, nausea/vomiting, orthostatic hypotension, recently seen in the emergency department on November 27 and treated for Lyme disease sent home with doxycycline. 1. Orthostatic hypotension 2. Anemia 3. Fatigue 4. Chronic conditions: HLD, Raynauds Orthostatic hypotension: Patient today continues to feel fatigued and occasionally lightheaded and orthostatic positive however improvement with steroids. The etiology of patient' s orthostatic hypotension remains unclear. It appears that the adrenal glands are properly responding as patient had a normal ACTH stim test with a response in his cortisol level to 20. Patient was seen by endocrinology. Patient has no overt signs of pituitary mass large enough to cause visual defects or headaches. 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 Other causes of orthostatic hypotension include infectious etiology due to possible lyme disease, medications (however not currently on any antihypertensives or medications that affect the autonomic nervous system), other causes may include dysfunction of the renin-aldosterone angiotensin system however patient's electrolytes remain wnl. Patient may have autonomic dysfunction and would benefit from further cardiac work up. 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 Raynaud's has been associated with pituitary dysfunction. * Patient will be discharged on Hydrocortisone 20mg in AM and 10mg at 4PM daily * Patient to continue taking Florinef 0.1mg daily * Follow up with Dr. Glynn. 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 Stable. Fatigue: Lyme IGGs not diagnostic Repeat Lyme titers negative DVT ppx-heparin subcutaneous Regular diet Full code Dispo: discharge home today Allergies: Coded Allergies: Penicillins (UPSET STOMACH 12/01/17) Discharge Instructions Medications at Discharge Discharge Medications: Stop taking the following medications: Doxycycline Hyclate (Doxycycline Hyclate) 100 MG TABLET ORAL TWICE DAILY Qty = 28 Continue taking these medications: Ondansetron (Zofran Odt) 4 MG TAB.RAPDIS 1 Tablet SUBLINGUAL THREE TIMES DAILY as needed for nausea Qty = 10 Comments: Last Taken: 12/04/17 Time: 5:53 AM Start taking the following new medications: Fludrocortisone Acetate (Fludrocortisone Acetate) 0.1 MG TABLET 1 Tablet ORAL DAILY Qty = 30 No Refills Comments: Last Taken: 12/07/17 Time: 10:00 AM Hydrocortisone (Cortef) 10 MG TABLET 0 ORAL See Instructions Qty = 90 Refills = 2 Instructions: PLEASE TAKE 2 TABLETS IN THE MORNING AND 1 TABLET IN THE EVENING DAILY Comments: NOT GIVEN IN HOSPITAL. WILL START TAKING ONCE DISCHARGED Pantoprazole Sodium (Protonix) 40 MG TABLET.DR 1 Tablet ORAL DAILY Qty = 90 No Refills Comments: NOT GIVEN IN HOSPITAL. WILL START TAKING ONCE DISCHARGE
== END 2017-12-07 11:20 | DRG 644 ==
LOC: ERH 14:08 → ERHI 18:47 → 2NA 18:47 → ENRESERV 20:39 → ENTRNSPT 21:13 → EDTRNSPT 21:30 → EDTRNSPTSTS 21:30 → CMPTRNSPT 21:54 → 2NA 22:02 → ENPENDDIS 12-07 10:22 → 2NA 12-07 11:20
PROVIDERS: Physician Assistant Medical; Student in an Organized Health Care Education/Training Program
DX: E27.40 Unspecified adrenocortical insufficiency (principal); A69.20 Lyme disease, unspecified; I73.00 Raynaud's syndrome without gangrene; I95.1 Orthostatic hypotension; E23.6 Other disorders of pituitary gland; E78.5 Hyperlipidemia, unspecified; Z80.0 Family history of malignant neoplasm of digestive organs; Z88.0 Allergy status to penicillin; D64.9 Anemia, unspecified
CPT/HCPCS: 2NASP; 70552; 84133; 84300; 86618; 36415; 36592; 70553; 80307; 81003; 82436; 82570; 84403; 93005; 93010; 96360; 97116-GO; 97161-GP; A9579; J0834; J1644; J1720; J2405; J7120